=== PATIENT | male | born 1950 | race Caucasian/White ===

== ENCOUNTER 2022-02-14 21:30 | Emergency (ER) | payer MEDICARE, OTHER, SELFPAY ==
[2022-02-14 21:44] VITALS: BP 147/74; PULSE 101; RESP 20; TEMP 38.3; O2SAT 98; BMI 31.2
--- NOTE | 2022-02-14 22:15 | ED.GENADULT ---
HPI - General Adult General Chief complaint: Weakness Stated complaint: Weakness, Confusion Time Seen by Provider: 02/14/22 21:43 Source: patient, family, RN notes reviewed and old records reviewed Mode of arrival: ambulatory Limitations: altered mental status History of Present Illness HPI narrative: 72-year-old man presenting to the emergency department with his with concern of chilled, feeling cold last night. No measured fever until more today I believe was measured at 101. was also concerning seem to be a little bit out of it slightly confused. Especially this evening and was having trouble with his devices indicating screens/phone. Normally this would not be an issue. Had been feeling more tired recently. Long sleep today. A week ago reports similar symptoms but without confusion. Has had no pain. Was also more weak needing wheelchair on the way in. Underlying history of diabetes but blood sugars have been okay. Again the weakness is a major issue at the moment it is just hard to get out of the chair. Has not had any cough or cold symptoms of though admittedly does have a chronic possibly sinus related cough. History of urostomy. My review of records shows mixed david in urine cultures in the past. Is vaccinated for COVID. Did receive a B12 shot today. Past History Past Medical History Medical Problems: Coronary artery disease 12/17 LAD stents open, 50% RCA; 05/15 LAD stenting performed; tte 09/20 - ef 58%, lvh, diastolic dysfunction Knee osteoarthritis Gastroesophageal reflux h/o gastric ulcer. 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 History of total knee arthroplasty History of cholecystectomy History of coronary artery stent placement History of appendectomy Family History Family History Problems: Family history of breast cancer in mother Family history of cerebrovascular accident (CVA) in father Family history of hypertension in father Family history of diabetes mellitus grandparent Social History Social History Problems: Non-smoker Retired from employment Related Data Allergies Allergy/AdvReac Type Severity Reaction Status Date / Time Sulfa drugs Allergy Intermediate Hives Uncoded 01/30/22 09:43 Review of Systems Status of ROS: Reports: 10 or more systems reviewed and unremarkable except as noted in History and below PFSH PFSH Surgical History History of appendectomy History of cholecystectomy History of coronary artery stent placement History of ileal conduit History of total knee replacement Status post bilateral knee replacements Family History Mother Breast cancer Father Stroke High blood pressure Family/Other Diabetes Social History Narrative: Non-smoker- history of tobacco use Retired from employment Smoking Status: Unknown if ever smoked Do you use any of these nicotine containing products: None How often do you have a drink containing alcohol: never AUDIT-C Alcohol total score: 0 Non-prescribed substance use: denies use Exam Narrative: Exam Narrative: Pleasant. Easily conversant. Seems a little fatigued. Does demonstrate some confusion initially with repeating questions that already been answered. He though is also hard of hearing having [address] Is able to assist with exam though again seems just a little weak. Cranial nerves 2-12 intact. Head is atraumatic. Oropharynx is sticky. An upward plate. Neck is supple without LA. lungs are clear. CV is elevated rate to tachycardic. Regular rhythm. There is 1-2/6 systolic murmur which he reports is not new. Skin is warm. It done appreciate rash. Abdomen is soft and nontender. Urostomy in place at the right lower abdomen without inflammatory changes. Approximately 400 mL of Medium yellow urine present in bag. Appears relatively clear. Extremities are without without edema. Well perfused peripherally. Const: Vital Signs, click to edit/add: Vital Signs - 24 hr 02/14/22 21:44 02/15/22 01:06 02/15/22 01:51 Temperature 101.0 F H 98.1 F 98.1 F Pulse Rate 68 Pulse Rate [Right Pulse Oximeter] 101 H 68 Respiratory Rate 20 16 16 Blood Pressure 134/70 Blood Pressure [Ri ght Upper Arm] 147/74 H 117/69 Pulse Oximetry 98 99 Documenting provider has reviewed patient's vital signs: yes Course Course Hospital Course: Initial EKG reviewed by me shows normal sinus rhythm at 88. No ischemic changes. Monitor on panel monitor and oximetry during time in the ER. Did receive ultimately 2 L normal saline emergency department along with a g of acetaminophen. Upon findings in urine it did give a g of Rocephin as well. Fever broke. Had more energy. And was no longer confused. Transitioning easily between his room and the bathroom. Vital Signs Vital signs: Initial Vital Signs Temperature 101.0 F H 02/14/22 21:44 Temperature Source Temporal Artery Scan 02/14/22 21:44 Pulse Rate 101 H 02/14/22 21:44 Respiratory Rate 20 02/14/22 21:44 Blood Pressure 147/74 H 02/14/22 21:44 Blood Pressure Mean 98 02/14/22 21:44 Blood Pressure Position Sitting 02/14/22 21:44 Pulse Oximetry 98 02/14/22 21:44 Oxygen Delivery Method 02/14/22 21:44 Vital Signs Temperature 101.0 F H 02/14/22 21:44 Pulse Rate 101 H 02/14/22 21:44 Respiratory Rate 20 02/14/22 21:44 Blood Pressure 147/74 H 02/14/22 21:44 Pulse Oximetry 98 02/14/22 21:44 Temperature 98.1 F 02/15/22 01:51 Pulse Rate 68 02/15/22 01:51 Respiratory Rate 16 02/15/22 01:51 Blood Pressure 134/70 02/15/22 01:51 Pulse Oximetry 99 02/15/22 01:06 Medical Decision Making MDM Narrative Medical decision making narrative: This is not the only man this emergency department this evening with somewhat unclear febrile illness. Was negative for COVID influenza here. White count was not elevated but CRP was elevated 4.5. blood cultures are pending. Urine cultures are pending. Conflicted regarding the urinalysis which was cloudy 1+ protein 1+ blood positive for nitrite and microscopic 2-5 red cells and 10-25 white cells. Many bacteria. This courses from a mid collection on a urostomy. In the more likely unspecified febrile illness likely viral is driving this fever and had fevers contributing to altered mental status. Incidental findings in urine. Culture pending. However given comorbidities include be prudent to continue treatment. Again Rocephin here in the emergency department will be continued on a week of cephalexin. He was overall improved and requesting departure. Lab Data Labs: Lab Results 02/14/22 02/14/22 02/14/22 Range/Units 22:35 22:48 22:48 WBC 7.76 (4.50-11.00) K/uL RBC 3.69 L (4.30-5.90) m/uL Hgb 11.1 L (13.5-17.5) gm/dL Hct 33.7 L (37.0-53.0) % MCV 91 (80-100) fL MCH 30 (26-34) pg MCHC 33 (32-36) gm/dL RDW Coeff of Arabella 14.7 (11.5-15.5) % Plt Count 174 (140-440) K/uL Neut % (Auto) 81.8 H (42.0-72.0) % Lymph % (Auto) 9.4 L (20-44) % Coles % (Auto) 7.5 (0.0-11.0) % Eos % (Auto) 0.3 (0.0-7.0) % Baso % (Auto) 0.0 (0.0-3.0) % Neut # (Auto) 6.30 (1.7-7.0) K/uL Lymph # (Auto) 0.70 L (0.90-2.90) K/uL Coles # (Auto) 0.60 (0.00-0.90) K/UL Eos # (Auto) 0.02 (0.00-0.50) K/uL Baso # (Auto) 0.00 (0.00-0.30) K/uL Abs Immat Gran (auto) 0.08 (0.00-0.30) K/uL VBG pH (7.32-7.43) VBG pCO2 (40-50) mmHG VBG pO2 (25-47) mmHG VBG HCO3 (21-28) mmol/L Sodium 136 (135-149) mmol/L Potassium 4.0 (3.6-5.1) mmol/L Chloride 103 (96-114) mmol/L Carbon Dioxide 23 (20-32) mmol/L BUN 20 (7-30) mg/dL Creatinine 0.9 (0.5-1.5) mg/dL Estimated Creat Clear 71.13 Glucose 224 H (60-115) mg/dL Calcium 8.7 (8.4-10.6) mg/dL Total Bilirubin 0.4 (0.1-1.5) mg/dL Direct Bilirubin 0.3 (0.0-0.5) mg/dL AST 25 (12-35) U/L ALT 21 (4-50) U/L Alkaline Phosphatase 91 (40-150) U/L C-Reactive Protein 4.5 H (0.5-1.0) mg/dL Total Protein 7.0 (6.0-8.3) g/dL Albumin 4.0 (3.3-5.0) g/dL Urine Color Yellow (Yellow) Urine Appearance Cloudy A (Clear) Urine pH 7.5 (5.0-8.5) Ur Specific [place] 1.015 (1.000-1.030) Urine Protein 1+ A (Negative) Urine Glucose (UA) Negative (Negative) Urine Ketones Negative (Negative) Urine Blood 1+ A (Negative) Urine Nitrite Positive A (Negative) Urine Bilirubin Negative (Negative) Urine Urobilinogen 0.2 (0.2-1.0) Ur Leukocyte Esterase Trace A (Negative) Urine RBC 2-5 A (0-2) Urine WBC 10-25 A (0-5) Ur Squamous Epith Cells Few (None-Few) Amorphous Sediment Few A (None) Urine Bacteria Many A (None) SARS-CoV-2 (PCR) (Negative) Influenza Type A (PCR) (Negative) Influenza Type B (PCR) (Negative) 02/14/22 02/14/22 Range/Units 22:48 23:12 WBC (4.50-11.00) K/uL RBC (4.30-5.90) m/uL Hgb (13.5-17.5) gm/dL Hct (37.0-53.0) % MCV (80-100) fL MCH (26-34) pg MCHC (32-36) gm/dL RDW Coeff of Arabella (11.5-15.5) % Plt Count (140-440) K/uL Neut % (Auto) (42.0-72.0) % Lymph % (Auto) (20-44) % Coles % (Auto) (0.0-11.0) % Eos % (Auto) (0.0-7.0) % Baso % (Auto) (0.0-3.0) % Neut # (Auto) (1.7-7.0) K/uL Lymph # (Auto) (0.90-2.90) K/uL Coles # (Auto) (0.00-0.90) K/UL Eos # (Auto) (0.00-0.50) K/uL Baso # (Auto) (0.00-0.30) K/uL Abs Immat Gran (auto) (0.00-0.30) K/uL VBG pH 7.472 H (7.32-7.43) VBG pCO2 34 L (40-50) mmHG VBG pO2 48.4 H (25-47) mmHG VBG HCO3 25 (21-28) mmol/L Sodium (135-149) mmol/L Potassium (3.6-5.1) mmol/L Chloride (96-114) mmol/L Carbon Dioxide (20-32) mmol/L BUN (7-30) mg/dL Creatinine (0.5-1.5) mg/dL Estimated Creat Clear Glucose (60-115) mg/dL Calcium (8.4-10.6) mg/dL Total Bilirubin (0.1-1.5) mg/dL Direct Bilirubin (0.0-0.5) mg/dL AST (12-35) U/L ALT (4-50) U/L Alkaline Phosphatase (40-150) U/L C-Reactive Protein (0.5-1.0) mg/dL Total Protein (6.0-8.3) g/dL Albumin (3.3-5.0) g/dL Urine Color (Yellow) Urine Appearance (Clear) Urine pH (5.0-8.5) Ur Specific [place] (1.000-1.030) Urine Protein (Negative) Urine Glucose (UA) (Negative) Urine Ketones (Negative) Urine Blood (Negative) Urine Nitrite (Negative) Urine Bilirubin (Negative) Urine Urobilinogen (0.2-1.0) Ur Leukocyte Esterase (Negative) Urine RBC (0-2) Urine WBC (0-5) Ur Squamous Epith Cells (None-Few) Amorphous Sediment (None) Urine Bacteria (None) SARS-CoV-2 (PCR) Negative SARS-CoV-2 (Negative) Influenza Type A (PCR) NEGATIVE (Negative) Influenza Type B (PCR) NEGATIVE (Negative) Discharge Plan Discharge Clinical Impression: Acute alteration in mental status, Suspected urinary tract infection, Acute febrile illness Patient Disposition: Home w/ Parent or Adult Condition: Improved Instructions: Urinary Tract Infection in Men (ED) Additional Instructions: focus on hydration with unsugared /unsweetened liquids; Water is great. Can take up to 800 mg of ibuprofen or up to 1000 mg of acetaminophen per dose. Urine culture will be pending here. I am not convinced that your urine is really the problem but I think it is prudent to treat. Return for increasing weakness in spite of fever control, inability to control fever, repeated vomiting or intractable diarrhea, Increasing shortness of breath, chest pain. Follow Up/Referrals: Aydee Harrison PA-C [Primary Care Provider] - Stand Alone Forms: [employer] Info Instructions
[2022-02-14 22:59] LABS: HCO3 VBG 25 mmol/L (21-28); PCO2 VBG 34 mmHG (40-50); PO2 VBG 48.4 mmHG (25-47); pH VBG 7.472 (7.32-7.43)
[2022-02-14] MEDS: 0.9 % SODIUM CHLORIDE 1000 ml 1,000 ML IV (23:00)
[2022-02-14 23:04] LABS: Appearance Urine Cloudy (Clear); Bilirubin Urine Negative (Negative); Blood Urine 1+ (Negative); Color Urine Yellow (Yellow); Glucose Urine Negative (Negative); Ketones Urine Negative (Negative); Leukocyte Esterase Urine Trace (Negative); Nitrite Urine Positive (Negative); Protein Urine 1+ (Negative); Specific Gravity Urine 1.015 (1.000-1.030); Urobilinogen Urine 0.2 (0.2-1.0); pH Urine 7.5 (5.0-8.5)
[2022-02-14 23:16] LABS: Chloride* 103 mmol/L (96-114); Eosinophils Absolute Auto 0.02 K/uL (0.00-0.50); Eosinophils Percent Auto 0.3 % (0.0-7.0); Hematocrit 33.7 % (37.0-53.0); Hemoglobin* 11.1 gm/dL (13.5-17.5); Immature Granulocytes Abs Auto 0.08 K/uL (0.00-0.30); Lymphocytes Percent Auto 9.4 % (20-44); Mean Corpuscular HGB Conc 33 gm/dL (32-36); Mean Corpuscular Hemoglobin 30 pg (26-34); Mean Corpuscular Volume 91 fL (80-100); Monocytes Percent Auto 7.5 % (0.0-11.0); Neutrophils Percent Auto 81.8 % (42.0-72.0); Platelet Count* 174 K/uL (140-440); RDW Coefficient of Variation % 14.7 % (11.5-15.5); Red Blood Count 3.69 m/uL (4.30-5.90); Sodium* 136 mmol/L (135-149); White Blood Count* 7.76 K/uL (4.50-11.00)
[2022-02-14 23:18] LABS: Creatinine* 0.9 mg/dL (0.5-1.5); Est. Creatinine Clearance* 71.13; Estimated Glomerular Filt Rate 89.62
[2022-02-14 23:19] LABS: Alanine Aminotransferase* 21 U/L (4-50); Alkaline Phosphatase* 91 U/L (40-150); Aspartate Amino Transferase* 25 U/L (12-35); Bilirubin Direct* 0.3 mg/dL (0.0-0.5); Bilirubin Total* 0.4 mg/dL (0.1-1.5); Blood Urea Nitrogen* 20 mg/dL (7-30); Calcium* 8.7 mg/dL (8.4-10.6); Carbon Dioxide* 23 mmol/L (20-32); Glucose* 224 mg/dL (60-115); Slide Review Reflex No
[2022-02-14 23:22] LABS: C Reactive Protein* 4.5 mg/dL (0.5-1.0)
[2022-02-14 23:56] LABS: Amorphous Sediment Urine Few; Bacteria Urine Many; Squamous Epithelial Cell Urine Few (None-Few)
[2022-02-15 00:06] LABS: PCR FLU A NEGATIVE (Negative); PCR FLU B NEGATIVE (Negative); SARS PCR* Negative SARS-CoV-2 (Negative)
[2022-02-15] MEDS: cefTRIAXone 1 GM in 0.9 % SODIUM CHLORIDE Mini-bag 100 ML IVPB (00:54)
[2022-02-15] MEDS: 0.9 % SODIUM CHLORIDE 1000 ml 1,000 ML IV (00:54)
[2022-02-15 01:06] VITALS: BP 117/69; PULSE 68; RESP 16; TEMP 36.7; O2SAT 99
[2022-02-15 01:51] VITALS: BP 134/70; PULSE 68; RESP 16; TEMP 36.7
== END 2022-02-15 01:56 ==
PROVIDERS: Emergency Provider Family Medicine; PCP Physician Assistant Medical
DX: R41.82 Altered mental status, unspecified (principal); N39.0 Urinary tract infection, site not specified; R50.9 Fever, unspecified
CPT/HCPCS: 36415; 80048; 80076; 81003; 81015; 82803; 85025; 86140; 87040; 87086; 87186; 87502; 87635; 93005; 96365; 99283; 99284; J0696; J7030

== ENCOUNTER 2022-04-06 13:09 | Outpatient (CLI) | payer MEDICARE, OTHER, SELFPAY | END 2022-04-06 13:10 | disposition home or self-care (01) | LOC: LKVREF 04-09 16:12 | PROVIDERS: PCP Physician Assistant Medical; Visit Provider Nurse Practitioner Family | DX: R30.0 Dysuria (principal); N39.0 Urinary tract infection, site not specified | CPT/HCPCS: 87086; 87186 ==

== ENCOUNTER 2022-09-05 10:38 | Outpatient (CLI) | payer MEDICARE, OTHER, SELFPAY | END 2022-09-05 10:39 | disposition home or self-care (01) | LOC: FRMREF 09-07 09:16 | PROVIDERS: PCP Physician Assistant Medical; Visit Provider Physician Assistant Medical | DX: R30.0 Dysuria (principal); N39.0 Urinary tract infection, site not specified | CPT/HCPCS: 87086; 87186 ==

== ENCOUNTER 2022-10-30 12:23 | Outpatient (CLI) | payer MEDICARE, OTHER, SELFPAY | END 2022-10-30 12:24 | disposition home or self-care (01) | LOC: NFLDREF 11-01 06:42 | PROVIDERS: PCP Physician Assistant Medical; Referring Provider Physician Assistant Medical; Visit Provider Registered Nurse | DX: R30.0 Dysuria (principal); N99.521 Infection of incontinent external stoma of urinary tract; R82.90 Unspecified abnormal findings in urine | CPT/HCPCS: 87086 ==

== ENCOUNTER 2022-12-04 10:44 | Outpatient (CLI) | payer MEDICARE, OTHER, SELFPAY | END 2022-12-04 10:45 | disposition home or self-care (01) | LOC: NFLDREF 12-07 12:33 | PROVIDERS: PCP Physician Assistant Medical; Referring Provider Physician Assistant Medical; Visit Provider Physician Assistant Medical | DX: N30.00 Acute cystitis without hematuria (principal) | CPT/HCPCS: 87086; 87186 ==

== ENCOUNTER 2023-01-17 08:08 | Outpatient (CLI) | payer MEDICARE, OTHER, SELFPAY ==
[2023-01-17 14:32] LABS: Alanine Aminotransferase* 26 U/L (4-50); Aspartate Amino Transferase* 28 U/L (12-35)
[2023-01-17 14:34] LABS: Chloride* 107 mmol/L (96-114); Sodium* 140 mmol/L (135-149)
[2023-01-17 14:37] LABS: Blood Urea Nitrogen* 21 mg/dL (7-30); Calcium* 8.8 mg/dL (8.4-10.6); Carbon Dioxide* 23 mmol/L (20-32); Creatinine* 0.9 mg/dL (0.5-1.5); Estimated Glomerular Filt Rate 90 ml/min; Glucose* 145 mg/dL (60-115)
[2023-01-17 16:11] LABS: PSA Screen* < 0.06 ng/mL (0.10-4.00)
[2023-01-17 16:19] LABS: Vitamin B12* 419 pg/mL (243-894)
== END 2023-01-17 08:09 | disposition home or self-care (01) ==
PROVIDERS: PCP Physician Assistant Medical; Visit Provider Physician Assistant Medical
DX: E53.8 Deficiency of other specified B group vitamins (principal); N40.0 Benign prostatic hyperplasia without lower urinary tract symptoms; E78.5 Hyperlipidemia, unspecified; I10 Essential (primary) hypertension
CPT/HCPCS: 80048; 82607; 84153; 84450; 84460

== ENCOUNTER 2023-06-29 09:42 | Outpatient (CLI) | payer MEDICARE, OTHER, SELFPAY | END 2023-06-29 09:43 | disposition home or self-care (01) | LOC: NFLDREF 07-05 09:33 | PROVIDERS: PCP Physician Assistant Medical; Referring Provider Physician Assistant Medical; Visit Provider Physician Assistant | DX: R35.89 Other polyuria (principal); N39.0 Urinary tract infection, site not specified | CPT/HCPCS: 87086; 87186 ==

== ENCOUNTER 2023-08-07 13:26 | Outpatient (CLI) | payer MEDICARE, OTHER, SELFPAY | END 2023-08-07 13:27 | disposition home or self-care (01) | LOC: NFLDREF 08-09 11:32 | PROVIDERS: PCP Physician Assistant Medical; Referring Provider Physician Assistant Medical; Visit Provider Family Medicine | DX: N39.0 Urinary tract infection, site not specified (principal); N30.00 Acute cystitis without hematuria | CPT/HCPCS: 87086 ==

== ENCOUNTER 2023-11-26 09:45 | Outpatient (RCR) | payer MEDICARE, OTHER, SELFPAY ==
--- NOTE | 2023-10-08 11:00 | PT.OPE ---
PT [facility] Eval Start: 10/08/23 08:41 Freq: Status: Active Protocol: Document 10/08/23 08:42 ENM (Rec: 10/08/23 10:08 ENM [id number]) E-signed By Yessenia Mendez DPT Physical Therapy Outpatient Evaluation Insurance Information Recert Due Date 12/31/23 Insurance Name Medicare B Medical Diagnosis other abnormalities of gait and mobility Treating Diagnosis difficulty walking, impaired balance, impaired gait, decreased LE strength Referring MD Harrison Subjective Subjective Patient presents to PT for balance difficulties. With walking outside in the yard he has started to use a walking stick. He used to walk a lot more before but stopped. With walking around his home he is feeling slower and has to be careful. At the store he uses the cart for support. Using the walking stick gives him a little bit more confidence. He denies any falls in the last couple of months but has fallen on his slanted driveway a few times in the past. He stays active with playing golf . He has stopped doing exercises for his legs with bands. When it started: sneaking up on him in the last year Describes it as: Feels like he is going to lose his balance but can catch it if paying attention PMHx: IDDMII, hx of malignancy of bladder, HTN, HLP, CAD, b12 deficiency, BPH, CAMERON, B knee replacements Current Work Status Retired Preferred Name [facility] Objective Other/Pertinent Objective ROM: LE WFL as seen with transfers Strength: 5x STS 21.08s without use of arms 30s STS 7 reps hip flexors 4-/5 knee extensors 4/5 ankle DF 4/5 Gait/balance: narrow GRACIELA no difficulty modified tandem mild sway true tandem unable to hold >2- 3s FGA gait level 2 change speed 2 (no real change in speed) HZ head turns 2 vertical head turns 3 gait and pivot 2 step over obstacle (black klarissa) narrow GRACIELA 1 (modified tandem to perform) eyes closed (>9s) backwards 2 steps 2 6MWT pre HR 89 spo2 96% post HR 97 spo2 98% 846' no AD no instability (6 laps) Gait: Patient ambulates with wider GRACIELA with HZ sway, decreased foot clearance and pace Assessment Assessment/Impression Patient is a 73 year old male presenting with balance impairments that started about a year ago. Their strength has started to decrease and he now uses a walking stick when outside to feel more confident. He reports no recent falls but has fallen in the past when walking out along his driveway. Upon assessment patient displays decreased LE functional strength and endurance with 30s STS testing . He is able to tolerate 846' of ambulation during 6MWT with slow pace but no overt instability. He displays static balance impairments with tandem stance. As well as dynamic balance impairments on FGA scoring 18/30 indicating increased risk for falls. [facility] would greatly benefit from skilled PT to address impairments stated above in order to safely participate in all functional mobility and decrease risk for future falls . Primary Functional Limitations walking on uneven surfaces or hills Plan of Care Rehabilitation Potential Good Physical Therapy Goals In 7-9 visits: 1. Patient will be IND with HEP and self management of symptoms 2. Patient will improve FGA score from 18 to 22 (MDC 4s) to demonstrate improvements in balance/stability 3. Patient will improve 5x STS from 21.08s to 17.08s (MDC 4s ) to demonstrate improvement in LE functional strength and endurance 4. Patient will improve 6MWT from 846' to >1000' (MDC 190') to demonstrate improvements in community mobility Coordination/Communication With Referral Source Treatment Plan/Direct Interventions Gait Training,Joint Mobilization,Manual Therapy, Neuromuscular Re-ed,Self-Care/ Home Management,Therapeutic Activities,Therapeutic Exercises Frequency/Duration 1x a week for 7-10 visits Patient Will Be Discharged From Therapy Completion of LTG(s), Independent w/HEP Evaluation Billing Untimed Code Treatment Minutes 40 Complexity Low Certification Information Initial Certification Date 10/08/23 Ending Certification Date 12/31/23 Provider Signature Shows Agreement With POC & Medical Necessity Physician Signature & Date Requested Please Sign/Date Here Physician Comment/Change : Physician NPI Number #
== END 2024-02-25 14:34 | disposition home or self-care (01) ==
PROVIDERS: PCP Physician Assistant Medical; Visit Provider Physician Assistant Medical
DX: R26.89 Other abnormalities of gait and mobility (principal); Z51.89 Encounter for other specified aftercare
CPT/HCPCS: 87086; 97110; 97112; 97161

== ENCOUNTER 2024-01-15 09:05 | Outpatient (CLI) | payer MEDICARE, OTHER, SELFPAY | END 2024-01-15 09:06 | disposition home or self-care (01) | LOC: NFLDREF 01-19 11:51 | PROVIDERS: PCP Physician Assistant Medical; Referring Provider Physician Assistant Medical; Visit Provider Physician Assistant Medical | DX: N30.00 Acute cystitis without hematuria (principal) | CPT/HCPCS: 87086 ==

== ENCOUNTER 2024-02-04 10:18 | Outpatient (CLI) | payer MEDICARE, OTHER, SELFPAY | END 2024-02-04 10:19 | disposition home or self-care (01) | LOC: NFLDREF 02-07 08:45 | PROVIDERS: PCP Physician Assistant Medical; Referring Provider Physician Assistant Medical; Visit Provider Physician Assistant Medical | DX: E53.8 Deficiency of other specified B group vitamins (principal); R82.998 Other abnormal findings in urine | CPT/HCPCS: 87086; 87186 ==

== ENCOUNTER 2024-02-25 13:01 | Outpatient (CLI) | payer MEDICARE, OTHER, SELFPAY | END 2024-02-25 13:02 | disposition home or self-care (01) | LOC: NFLDREF 02-28 02:05 | PROVIDERS: PCP Physician Assistant Medical; Referring Provider Physician Assistant Medical; Visit Provider Physician Assistant Medical | DX: N30.00 Acute cystitis without hematuria (principal) | CPT/HCPCS: 87086 ==

== ENCOUNTER 2024-03-31 12:14 | Outpatient (CLI) | payer MEDICARE, OTHER, SELFPAY | END 2024-03-31 12:15 | disposition home or self-care (01) | LOC: NFLDREF 04-01 11:11 | PROVIDERS: PCP Physician Assistant Medical; Referring Provider Physician Assistant Medical; Visit Provider Physician Assistant | DX: N30.00 Acute cystitis without hematuria (principal); N39.0 Urinary tract infection, site not specified | CPT/HCPCS: 87086; 87186 ==

== ENCOUNTER 2024-04-25 11:00 | Outpatient (CLI) | payer MEDICARE, OTHER, SELFPAY | END 2024-04-25 11:01 | disposition home or self-care (01) | LOC: NFLDREF 04-26 17:02 | PROVIDERS: PCP Physician Assistant Medical; Referring Provider Physician Assistant Medical; Visit Provider Nurse Practitioner Family | DX: N30.00 Acute cystitis without hematuria (principal); B96.1 Klebsiella pneumoniae [K. pneumoniae] as the cause of diseases classified elsewhere; B95.2 Enterococcus as the cause of diseases classified elsewhere | CPT/HCPCS: 87086; 87186 ==

== ENCOUNTER 2024-05-18 16:12 | Outpatient (CLI) | payer MEDICARE, OTHER, SELFPAY | END 2024-05-18 16:13 | disposition home or self-care (01) | LOC: NFLDREF 05-22 13:10 | PROVIDERS: PCP Physician Assistant Medical; Referring Provider Physician Assistant Medical; Visit Provider Nurse Practitioner Family | DX: N30.00 Acute cystitis without hematuria (principal) | CPT/HCPCS: 87086; 87186 ==

== ENCOUNTER 2024-06-13 10:00 | Outpatient (CLI) | payer MEDICARE, OTHER, SELFPAY | END 2024-06-13 10:01 | disposition home or self-care (01) | LOC: NFLDREF 06-15 09:50 | PROVIDERS: PCP Physician Assistant Medical; Referring Provider Physician Assistant Medical; Visit Provider Family Medicine | DX: N30.00 Acute cystitis without hematuria (principal); R61 Generalized hyperhidrosis; B99.9 Unspecified infectious disease; R39.9 Unspecified symptoms and signs involving the genitourinary system; E11.9 Type 2 diabetes mellitus without complications; Z79.4 Long term (current) use of insulin; D64.9 Anemia, unspecified | CPT/HCPCS: 87086; 87186 ==

== ENCOUNTER 2024-06-28 09:23 | Outpatient (CLI) | payer MEDICARE, OTHER, SELFPAY | END 2024-06-28 09:24 | disposition home or self-care (01) | LOC: NFLDREF 07-01 12:14 | PROVIDERS: PCP Physician Assistant Medical; Referring Provider Physician Assistant Medical; Visit Provider Physician Assistant | DX: R31.9 Hematuria, unspecified (principal); N39.0 Urinary tract infection, site not specified; N30.00 Acute cystitis without hematuria | CPT/HCPCS: 87086; 87186 ==

== ENCOUNTER 2024-07-02 11:25 | Outpatient (CLI) | payer MEDICARE, OTHER, SELFPAY | END 2024-07-02 11:26 | disposition home or self-care (01) | LOC: FRMREF 11:35 | PROVIDERS: PCP Physician Assistant Medical; Visit Provider Nurse Practitioner Family | DX: M25.50 Pain in unspecified joint (principal) | CPT/HCPCS: 86140 ==

== ENCOUNTER 2024-07-13 13:20 | Outpatient (CLI) | payer MEDICARE, OTHER, SELFPAY | END 2024-07-13 13:21 | disposition home or self-care (01) | LOC: NFLDREF 07-14 16:12 | PROVIDERS: PCP Physician Assistant Medical; Referring Provider Physician Assistant Medical; Visit Provider Nurse Practitioner Family | DX: N30.00 Acute cystitis without hematuria (principal); N39.0 Urinary tract infection, site not specified | CPT/HCPCS: 87086; 87186 ==

== ENCOUNTER 2024-07-27 12:09 | Outpatient (CLI) | payer MEDICARE, OTHER, SELFPAY | END 2024-07-27 12:10 | disposition home or self-care (01) | LOC: NFLDREF 07-28 03:41 | PROVIDERS: PCP Physician Assistant Medical; Referring Provider Physician Assistant Medical | DX: N30.00 Acute cystitis without hematuria (principal); B96.1 Klebsiella pneumoniae [K. pneumoniae] as the cause of diseases classified elsewhere | CPT/HCPCS: 87086; 87186 ==

== ENCOUNTER 2024-08-13 13:40 | Inpatient (IN) | payer MEDICARE, OTHER, SELFPAY ==
[2024-08-13] VITALS (9 sets, daily range): BP systolic 95–125; BP diastolic 57–67; PULSE 80–100; RESP 12–21; TEMP 36.7–38.8; O2SAT 94–98; BMI 30.1; BMI 31.5
--- NOTE | 2024-08-13 13:49 | CRLHL7_ITS ---
For Patients: As a result of the Cures Act, medical imaging exams and procedure reports are released immediately into your electronic medical record. You may view this report before your referring provider. If you have questions, please contact your health care provider. Indication: Fever and weakness Technique: Chest 1 view Comparison: None Findings/Impression: Cardiovascular and mediastinum: Heart size and vasculature are normal in caliber and appearance. Lungs and pleural space: Lungs are clear. No sign of infiltrate or mass. No sign of pleural effusion. No pneumothorax. Bones and soft tissues: No acute findings. Dictated by Dante Quinonez MD @ 08/13/2024 2:34:24 PM (Electronically Signed)
--- NOTE | 2024-08-13 13:55 | ED.GENADULT ---
HPI - General Adult General Date Seen: 08/13/24 Chief complaint: Urogenital Problems, Male Stated complaint: UTI Time Seen by Provider: 08/13/24 13:46 History of Present Illness HPI narrative: Patient is a 74-year-old male here from Urgent Care via EMS for confusion, fever, possible UTI. His had brought him to urgent care today because she was worried he might have another UTI, has a suprapubic catheter and has had problems with recurrent UTI, most recently treated on July 27. At urgent care he was noted to look somewhat poorly, had a temp of 102?, and was transferred here by ambulance. Vital signs were stable. Here, he denies current complaints, he does acknowledge he was feeling kind of poorly earlier. He was not aware of fever. He denies chest pain, cough, shortness of breath, abdominal pain, vomiting or diarrhea. Related Data Home Medications ?Medication ?Instructions ?Recorded ?Confirmed aspirin 81 mg tablet,delayed 81 mg PO QDAY 03/20/22 08/13/24 release (Adult Aspirin Regimen) insulin glargine 100 unit/mL (3 20 unit subcut QAM 03/20/22 08/13/24 mL) subcutaneous pen (Lantus Solostar U-100 Insulin) metformin 1,000 mg tablet 1,000 mg PO BID 03/20/22 08/13/24 sildenafil 25 mg tablet 25 mg PO QDAY PRN 03/20/22 08/13/24 semaglutide 1 mg/dose (4 mg/3 mL) 1 mg subcut QWEEK 10/01/23 08/13/24 subcutaneous pen injector (Ozempic) tirzepatide 10 mg/0.5 mL 10 mg subcut 06/13/24 08/13/24 subcutaneous pen injector (Mounjaro) Previous Rx's ?Medication ?Instructions ?Recorded nitroglycerin 0.4 mg sublingual 0.4 mg sublingual Q5M PRN chest 05/07/23 tablet pain #15 tabs rosuvastatin 20 mg tablet 20 mg PO QDAY #90 tabs 12/11/23 carvedilol 6.25 mg tablet 6.25 mg PO BID #180 tabs 01/14/24 trazodone 50 mg tablet 50 - 150 mg (1 - 3 x 50 mg) PO QPM 04/20/24 PRN sleep #270 tabs lisinopril 5 mg tablet 5 mg PO DAILY #90 tabs 05/13/24 Allergies Allergy/AdvReac Type Severity Reaction Status Date / Time Sulfa (Sulfonamide Allergy Intermediate Rash Verified 08/13/24 13:54 Antibiotics) Review of Systems Status of ROS: Reports: 10 or more systems reviewed and unremarkable except as noted in History and below [facility] Medical History Normal cardiac stress test Surgical History History of amputation ?Z89.9 - Acquired absence of limb, unspecified (ICD-10) Status post bilateral knee replacements (~2009) ?Z96.653 - Presence of artificial knee joint, bilateral (ICD-10) History of ileal conduit ?Z98.890 - Other specified postprocedural states (ICD-10) History of coronary artery stent placement ?Z95.5 - Presence of coronary angioplasty implant and graft (ICD-10) History of cholecystectomy ?Z90.49 - Acquired absence of other specified parts of digestive tract (ICD-10) History of appendectomy ?Z90.49 - Acquired absence of other specified parts of digestive tract (ICD-10) Family History Mother Breast cancer Father Stroke High blood pressure Family/Other Diabetes Social History Narrative: Non-smoker- history of tobacco use Retired from employment Smoking Status: Former smoker Do you use any of these nicotine containing products: None How often do you have a drink containing alcohol: never AUDIT-C Alcohol total score: 0 Non-prescribed substance use: denies use Exam Narrative: Exam Narrative: Vital signs reviewed In general, alert, nontoxic elderly male. Head: Normocephalic, atraumatic. Eyes: Sclera clear. Pupils equal and reactive. ENT: Mucous membranes moist. Neck: Supple without adenopathy. Heart: Regular rate and rhythm without murmur. Lungs: Clear. No increased work of breathing, crackles or wheezes. Abdomen: Soft, nontender to palpation. Catheter in place. Urine looks clear. Extremities: Well perfused, pulses intact. No significant edema. Neurologic: Alert, conversant. Speech fluent, face symmetric. Moves all extremities equally. He is oriented to person place and time, answers questions appropriately. Skin: Warm, dry well perfused. Affect: Normal. Const: Vital Signs, click to edit/add: Vital Signs - 24 hr 08/13/24 13:47 08/13/24 13:49 Temperature 101 F H Pulse Rate [Pulse Oximeter] 100 Respiratory Rate 20 Blood Pressure [Le ft Upper Arm] 125/61 Pulse Oximetry 97 98 Oxygen Delivery Me thod Room Air Documenting provider has reviewed patient's vital signs: yes Course Course ED Course: Following initial evaluation, patient had an EKG which showed a sinus rhythm, ventricular rate of 99. Right bundle branch block, no other acute findings. An IV was placed, labs were drawn including a blood culture, CBC, lactate, procalcitonin. A UA was ordered. Chest x-ray was done as well. By my review this is unremarkable without evidence of infiltrate. Final radiology read linked below, reviewed. Initial lab results show a lactate of 2.5, he is tripping markers for sepsis with fever, tachycardia, elevated lactate. Other sepsis markers are pending, patient is given a L of normal saline as well as Rocephin 2 g IV. With negative chest x-ray and multiple recent urine culture showing Klebsiella which is resistant to ampicillin and nitrofurantoin but otherwise sensitive, I think Rocephin is a reasonable choice. White blood cell count is normal at 10.6, he does have a left shift with 85% neutrophils. Venous gas shows a pH of 7.45, normal bicarb, pCO2 is 35. Metabolic panel is normal, BUN 25, creatinine 0.9. Blood sugars elevated at 237, LFTs are unremarkable. CRP is 6.7. Viral swab is negative. Patient admitted to hospitalist service for possible sepsis, likely urinary source. Vital Signs Vital signs: Initial Vital Signs Temperature 101 F H 08/13/24 13:47 Temperature Source Temporal Artery Scan 08/13/24 13:47 Pulse Rate 100 08/13/24 13:47 Respiratory Rate 20 08/13/24 13:47 Blood Pressure 125/61 08/13/24 13:47 Blood Pressure Mean 82 08/13/24 13:47 Blood Pressure Position Sitting 08/13/24 13:47 Pulse Oximetry 97 08/13/24 13:47 Oxygen Delivery Method Room Air 08/13/24 13:47 Vital Signs Temperature 101 F H 08/13/24 13:47 Pulse Rate 100 08/13/24 13:47 Respiratory Rate 20 08/13/24 13:47 Blood Pressure 125/61 08/13/24 13:47 Pulse Oximetry 97 08/13/24 13:47 Oxygen Delivery Method Room Air 08/13/24 13:47 Temperature 101 F H 08/13/24 13:47 Pulse Rate 100 08/13/24 13:47 Respiratory Rate 20 08/13/24 13:47 Blood Pressure 125/61 08/13/24 13:47 Pulse Oximetry 98 08/13/24 13:49 Oxygen Delivery Method Room Air 08/13/24 13:47 Medications Administered Medications: Discontinued Medications Generic Name Dose Route Start Last Admin Trade Name Freq PRN Reason Stop Dose Admin Acetaminophen 1,000 mg 08/13/24 13:49 08/13/24 14:08 Acetaminophen 500 Mg Tablet PO 08/13/24 13:50 1,000 mg ONCE ONE Administration Sodium Chloride 1,000 mls @ 1,000 mls/hr 08/13/24 14:00 08/13/24 14:08 0.9 % Sodium Chloride 1000 Ml IV 08/13/24 14:59 1,000 mls/hr .Q1H NATALIE Administration Ceftriaxone Sodium 2 gm/ 100 mls @ 200 mls/hr 08/13/24 14:42 08/13/24 15:05 Sodium Chloride IVPB 08/13/24 14:43 200 mls/hr ONCE ONE Administration Medical Decision Making Lab Data Labs: Lab Results 08/13/24 08/13/24 Range/Units 14:04 14:14 WBC 10.62 (4.50-11.00) K/uL RBC 3.92 L (4.30-5.90) m/uL Hgb 11.8 L (13.5-17.5) gm/dL Hct 35.9 L (37.0-53.0) % MCV 92 (80-100) fL MCH 30 (26-34) pg MCHC 33 (32-36) gm/dL RDW Coeff of Arabella 16.3 H (11.5-15.5) % Plt Count 95 L (140-440) K/uL Neut % (Auto) 85.4 H (42.0-72.0) % Lymph % (Auto) 5.4 L (20-44) % Wythe % (Auto) 8.6 (0.0-11.0) % Eos % (Auto) 0.0 (0.0-7.0) % Baso % (Auto) 0.2 (0.0-3.0) % Neut # (Auto) 9.10 H (1.7-7.0) K/uL Lymph # (Auto) 0.60 L (0.90-2.90) K/uL Wythe # (Auto) 0.90 (0.00-0.90) K/UL Eos # (Auto) 0.00 (0.00-0.50) K/uL Baso # (Auto) 0.02 (0.00-0.30) K/uL Abs Immat Gran (auto) 0.04 (0.00-0.30) K/uL Imm/Tot Granulo (auto) 0.4 % VBG pH 7.447 H (7.32-7.43) VBG pCO2 35 L (40-50) mmHG VBG pO2 53.0 H (25-47) mmHG VBG HCO3 24 (21-28) mmol/L Sodium 134 L (135-149) mmol/L Potassium 4.2 (3.6-5.1) mmol/L Chloride 103 (96-114) mmol/L Carbon Dioxide 22 (20-32) mmol/L Anion Gap 9 (7-15) mEq/L BUN 25 (7-30) mg/dL Creatinine 0.9 (0.5-1.5) mg/dL Estimated Creat Clear 64.89 Estimated GFR 89 ml/min Glucose 237 H (60-115) mg/dL Lactate 2.5 H (0.5-1.9) mmol/L Calcium 8.7 (8.4-10.6) mg/dL Total Bilirubin 1.1 (0.1-1.5) mg/dL Direct Bilirubin 0.3 (0.0-0.5) mg/dL AST 31 (12-35) U/L ALT 32 (4-50) U/L Alkaline Phosphatase 62 (40-150) U/L C-Reactive Protein 6.7 H (0.5-1.0) mg/dL Total Protein 6.9 (6.0-8.3) g/dL Albumin 4.2 (3.3-5.0) g/dL Procalcitonin 0.45 (<0.50) ng/mL SARS-CoV-2 (PCR) Negative SARS-CoV-2 (Negative) Influenza Type A (PCR) Negative PCR FLU A (Negative) Influenza Type B (PCR) Negative PCR FLU B (Negative) RSV (PCR) Negative PCR RSV (Negative) Imaging Data Chest x-ray: Attestation: I have reviewed the pertinent imaging results. Radiologist's impression: Patient: Jah Rivera MR#: [id number] : 1950 Acct:[id number] Loc: ED Service Date: 08/13/[address]: Ordering Physician: Guadalupe Silver M.D. Date of Service: 08/13/24 Procedure(s): XR chest 1V portable Accession Number(s): [id number] cc: Guadalupe Silver M.D.; Aydee NOWAK~ For Patients: As a result of the Cures Act, medical imaging exams and procedure reports are released immediately into your electronic medical record. You may view this report before your referring provider. If you have questions, please contact your health care provider. Indication: Fever and weakness Technique: Chest 1 view Comparison: None Findings/Impression: Cardiovascular and mediastinum: Heart size and vasculature are normal in caliber and appearance. Lungs and pleural space: Lungs are clear. No sign of infiltrate or mass. No sign of pleural effusion. No pneumothorax. Bones and soft tissues: No acute findings. Dictated by Dante Quinonez MD @ 08/13/2024 2:34:24 PM Discharge Plan Discharge Clinical Impression: Fever Patient Disposition: Admitted As Observation Condition: Stable
[2024-08-13] MEDS: 0.9 % SODIUM CHLORIDE 1000 ml 1,000 ML IV (14:08)
[2024-08-13] MEDS: ACETAMINOPHEN 500 MG TABLET 1000 MG PO (14:08)
[2024-08-13 14:23] LABS: Lactate Sepsis w/Reflex* 2.5 mmol/L (0.5-1.9)
[2024-08-13 14:25] LABS: Basophils Absolute Auto 0.02 K/uL (0.00-0.30); Basophils Percent Auto 0.2 % (0.0-3.0); Hematocrit 35.9 % (37.0-53.0); Hemoglobin* 11.8 gm/dL (13.5-17.5); Immature Granulocytes Abs Auto 0.04 K/uL (0.00-0.30); Immature Granulocytes Pct Auto 0.4 %; Lymphocytes Percent Auto 5.4 % (20-44); Mean Corpuscular HGB Conc 33 gm/dL (32-36); Mean Corpuscular Hemoglobin 30 pg (26-34); Mean Corpuscular Volume 92 fL (80-100); Monocytes Percent Auto 8.6 % (0.0-11.0); Neutrophils Percent Auto 85.4 % (42.0-72.0); Platelet Count* 95 K/uL (140-440); RDW Coefficient of Variation % 16.3 % (11.5-15.5); Red Blood Count 3.92 m/uL (4.30-5.90); White Blood Count* 10.62 K/uL (4.50-11.00)
[2024-08-13 14:41] LABS: Albumin* 4.2 g/dL (3.3-5.0); Chloride* 103 mmol/L (96-114); Potassium* 4.2 mmol/L (3.6-5.1); Sodium* 134 mmol/L (135-149)
[2024-08-13 14:43] LABS: Creatinine* 0.9 mg/dL (0.5-1.5); Est. Creatinine Clearance* 64.89; Estimated Glomerular Filt Rate 89 ml/min
[2024-08-13 14:44] LABS: Alanine Aminotransferase* 32 U/L (4-50); Alkaline Phosphatase* 62 U/L (40-150); Anion Gap 9 mEq/L (7-15); Aspartate Amino Transferase* 31 U/L (12-35); Bilirubin Direct* 0.3 mg/dL (0.0-0.5); Bilirubin Total* 1.1 mg/dL (0.1-1.5); Blood Urea Nitrogen* 25 mg/dL (7-30); Carbon Dioxide* 22 mmol/L (20-32); Glucose* 237 mg/dL (60-115); Slide Review Reflex No; Total Protein* 6.9 g/dL (6.0-8.3)
[2024-08-13 14:45] LABS: Calcium* 8.7 mg/dL (8.4-10.6)
[2024-08-13 14:47] LABS: C Reactive Protein* 6.7 mg/dL (0.5-1.0)
[2024-08-13 14:54] LABS: HCO3 VBG 24 mmol/L (21-28); PCO2 VBG 35 mmHG (40-50); pH VBG 7.447 (7.32-7.43)
[2024-08-13 15:01] LABS: Procalcitonin* 0.45 ng/mL (<0.50)
[2024-08-13 15:02] LABS: PCR FLU A Negative PCR FLU A (Negative); PCR FLU B Negative PCR FLU B (Negative); PCR RSV Negative PCR RSV (Negative); SARS PCR* Negative SARS-CoV-2 (Negative)
[2024-08-13] MEDS: cefTRIAXone 2 GM in 0.9 % SODIUM CHLORIDE Mini-bag 100 ML IVPB (15:05)
[2024-08-13 15:13] LABS: Appearance Urine Slightly Cloudy (Clear); Bilirubin Urine Negative (Negative); Blood Urine 1+ (Negative); Color Urine Yellow (Yellow); Glucose Urine Negative (Negative); Ketones Urine Negative (Negative); Leukocyte Esterase Urine 3+ (Negative); Nitrite Urine Negative (Negative); Protein Urine 2+ (Negative); Urobilinogen Urine 0.2 (0.2-1.0)
--- OUTSIDE RECORDS SUMMARY | 2024-08-13 15:33 | XMS_ITS ---
Author Organization [facility] Address [address] [place] [id number] Care Team Providers Care Delphi Developer Name Role Phone Xavi Devine Unavailable Clinic, [facility] Primary Care Provider Care, [facility] Unavailable Active Problems Problem Noted Date Diagnosed Date Bladder cancer 01/12/2020 Current Oncology Plans No current plan information found. Past Plans No past plan information found. Radiation Treatments * No radiation treatments are documented for this patient in [facility]. Treatments may have been administered in another system. Lifetime Dose Tracking * Chemical Lifetime Dose Automatic Entry Manual Entr y DLP 1.13 mGy*cm 1.13 mGy*cm 0 mGy*cm
--- OUTSIDE RECORDS SUMMARY | 2024-08-13 15:33 | XMS_ITS | Clinical Summary ---
Author Organization [facility] Address [address] [place] [address]. [place] [address] Care Team Providers Care Sliver Lapper Name Role Phone Sybil Xavi Chopra Unavailable [phone] Clinic, [facility] Primary Care Provider Care, [facility] Unavailable Allergies Active Allergy Reactions Criticality Noted Date Comments Sulfa Antibiotics Hives 06/18/2019 Medications liraglutide (VICTOZA) 18 MG/3ML solution Inject 1.8 mg Subcutaneous daily Active metFORMIN (GLUCOPHAGE) 1000 MG tablet Take 1,000 mg by mouth 2 times daily Active nitroGLYcerin (NITROSTAT) 0.[address] 0.4 mg under the tongue every 5 minutes as needed for chest pain For chest pain place 1 tablet under the tongue every 5 minutes for 3 doses. If symptoms persist 5 minutes after 1st dose call 911. Active tadalafil (CIALIS) 20 MG tablet Take 20 mg by mouth daily as needed Active traZODone (DESYREL) 50 MG tablet Take 50-150 mg by mouth every evening Active lisinopril (PRINIVIL/ZESTR IL) 5 MG tablet Take 5 mg by mouth daily Active carvedilol (COREG) 6.25 MG tablet Take 6.25 mg by mouth 2 times daily (with meals) Active rosuvastatin (CRESTOR) 20 MG tablet Take 20 mg by mouth every evening Active triamcinolone (KENALOG) 0.1 % external cream Apply topically 2 times daily as needed for irritation Active insulin glargine (LANTUS PEN) 100 UNIT/ML penIndications: Malignant neoplasm of urinary bladder, unspecified site (H) Inject 10 Units Subcutaneous 2 times daily 0 0 Active levETIRAcetam (KEPPRA) 1000 MG tabletIndicatio ns:Severe sepsis (H) Take 1 tablet (1,000 mg) by mouth 2 times daily 30 tablet 1 0 Active Active Problems Problem Noted Date Diagnosed Date Bladder cancer 01/12/2020 Encounters Date Type Department Care Team Description 05/26/2024 10:56 AM CDT - 05/26/2024 11:59 PM CDT Hospital Encounter [facility] [address] [place] [address] Larry Delaney MD 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); Diabetes mellitus type I (H) Discharge Disposition: Home or Self Care 05/26/2024 Travel from Last 3 Months Social History Tobacco Use Types Packs/Day Years Used Date Smoking Tobacco: Former Cigarettes Smokeless Tobacco: Never Alcohol Use Standard Drinks/Week Comments Yes 0 (1 standard drink = 0.6 oz pur e alcohol) social Adolescent Education Answer Date Record ed Getting School Help Needed Not on file 05/03 Sex and Gender Information Value Date Recorded Sex Assigned at Not on file Legal Sex Male 3:36 PM CDT Gender Identity Not on file Sexual Orientation Not on file Last Filed Vital Signs Vital Sign Reading Time Taken Comments Blood Pressure 133/68 12/02/2020 10:00 AM CDT Pulse 75 12/02/2020 10:00 AM CDT Temperature 36.6 C (97.8 F) 12/02/2020 8:11 AM CDT Respiratory Rate 16 12/02/2020 10:00 AM CDT Oxygen Saturation 95% 12/02/2020 10:00 AM CDT Inhaled Oxygen Concentration - - Weight 106.4 kg (234 lb 8 oz) 01/24/2020 5:43 AM CDT Height 177.8 cm (5' 10) 01/12/2020 9:03 AM CDT Body Mass Index 33.65 01/12/2020 9:03 AM CDT Plan of Treatment Health Maintenance Due Date Last Done Comments ANNUAL REVIEW OF HM ORDERS 1950 DIABETIC FOOT EXAM 1950 EYE EXAM 1950 LIPID 1950 MICROALBUMIN 1950 HEPATITIS C SCREENING 02/03/1966 ZOSTER IMMUNIZATION (1 of 2) 02/03/1998 FALL RISK ASSESSMENT 02/03/2013 MEDICARE ANNUAL WELLNESS VISIT 02/03/2013 DTAP/TDAP/TD IMMUNIZATION (1 - Tdap) 04/22/2019 04/21/2019 A1C 04/14/2020 01/13/2020, 03/04/2010 BMP 01/23/2021 01/24/2020, 01/10, 01/22/2020, Additional history exists RSV VACCINE (1 - 1-dose 75+ series) 02/03/2023 PHQ-2 (once per calendar year) 2023 ADVANCE CARE PLANNING 01/18/2025 01/19/2020 LUNG CANCER SCREENING 05/26/2025 05/26/2024 , 05/27/2023, 01/19/2020 Pneumococcal Vaccine: 50+ Years Completed 08/25/2018, 10/23/2016, 05/01/2011, Additional history exists COVID-19 Vaccine Completed 05/13/2024, , 06/17/2023, Additional history exists INFLUENZA VACCINE Completed 05/13/2024, , 05/28/2022, Additional history exists HPV IMMUNIZATION Aged Out No longer e ligible based on patient's age to complete this topic MENINGITIS IMMUNIZATION Aged Out No l onger eligible based on patient's age to complete this topic RSV MONOCLONAL ANTIBODY Aged Out No l onger eligible based on patient's age to complete this topic Medical Devices Explanted Type Area Machine Gunner Device Identifier Shelf Expiration Date Model / Serial / Lot Port-07/21/2019 Implanted:Qty: 1 on 07/21/2019 by Dorian Yu MD Explanted:Qty: 1 on 12/02/2020 by Louis Ferreira MD Port Right: Chest Wall BARD 09/11/2020 / / [id number] Procedures Procedure Name Priority Date/Time Associated Diagnosis Comments CT CHEST/ABDOMEN/PELVIS W CONTRAST Routine 05/26/2024 11:31 AM CDT 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) Diabetes mellitus type I (H) ISTAT CREATININE POCT Routine 05/26/2024 11:15 AM CDT BASIC METABOLIC PANEL Routine 01/24/2020 6:00 AM CDT HEMOGLOBIN A1C Routine 01/13/2020 6:53 AM CDT from Last 3 Months or Most Recently Relevant to Health Maintenance Results * CT Chest/Abdomen/Pelvis w Contrast (05/26/2024 11:31 AM CDT) Anatomical Region Laterality Modality Abdomen/Pelvis, Chest, SUBRA D CT BODY, UMP CT CHEST, UMP CT ABDOMEN PELVIS, RAD CT Computed Tomography Impressions 05/26/2024 12:17 PM CDT IMPRESSION: 1. No recurrent or metastatic disease in the chest, abdomen and pelvis. 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 Multiplanar reformats were obtained. Dose reduction techniques were used. CONTRAST: 100mL Isovue-370 COMPARISON: 05/27/2023 FINDINGS: LUNGS AND PLEURA: Stable reticular opacities with mild architectural distortion and traction bronchiectasis in the bilateral lower lobes of the lung bases, likely due to mild nonspecific pulmonary fibrosis. No pulmonary nodules or masses. No infiltrate or pleural effusion.. MEDIASTINUM/AXILLAE: No lymphadenopathy. No thoracic aortic aneurysm. Severe coronary artery calcifications. HEPATOBILIARY: No focal lesions of the liver. Cholecystectomy. PANCREAS: Normal. SPLEEN: Normal. ADRENAL GLANDS: Normal. KIDNEYS/BLADDER: Cystoprostatectomy. Right lower quadrant ileal loop urinary conduit. No renal calculi, masses or hydronephrosis. Stable moderate-sized fat-containing parastomal. BOWEL: No small bowel or colonic obstruction or inflammatory changes. Appendectomy. Colonic diverticulosis. Moderate amount of formed stool throughout the colon. PELVIC ORGANS: Cystoprostatectomy. No pelvic masses. ADDITIONAL FINDINGS: No lymphadenopathy. No abdominal aortic aneurysm. MUSCULOSKELETAL: Degenerative changes of the spine. No suspicious lesions within the bones. 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 Multiplanar reformats were obtained. Dose reduction techniques were used. CONTRAST: 100mL Isovue-370 COMPARISON: 05/27/2023 FINDINGS: LUNGS AND PLEURA: Stable reticular opacities with mild architectural distortion and traction bronchiectasis in the bilateral lower lobes of the lung bases, likely due to mild nonspecific pulmonary fibrosis. No pulmonary nodules or masses. No infiltrate or pleural effusion.. MEDIASTINUM/AXILLAE: No lymphadenopathy. No thoracic aortic aneurysm. Severe coronary artery calcifications. HEPATOBILIARY: No focal lesions of the liver. Cholecystectomy. PANCREAS: Normal. SPLEEN: Normal. ADRENAL GLANDS: Normal. KIDNEYS/BLADDER: Cystoprostatectomy. Right lower quadrant ileal loop urinary conduit. No renal calculi, masses or hydronephrosis. Stable moderate-sized fat-containing parastomal. BOWEL: No small bowel or colonic obstruction or inflammatory changes. Appendectomy. Colonic diverticulosis. Moderate amount of formed stool throughout the colon. PELVIC ORGANS: Cystoprostatectomy. No pelvic masses. ADDITIONAL FINDINGS: No lymphadenopathy. No abdominal aortic aneurysm. MUSCULOSKELETAL: Degenerative changes of the spine. No suspicious lesions within the bones. IMPRESSION: 1. No recurrent or metastatic disease in the chest, abdomen and pelvis. CAITLYN RYAN MD Larry Delaney MD [facility] [place] ORDERABLES Final Result * Creatinine POCT (05/26/2024 11:15 AM CDT) Creatinine POCT 0.9 0.7 - 1.3 mg/dL 05/26/2024 11:17 AM CDT [facility] POC GFR, ESTIMATED POCT >60 >60 mL/min/1.7 3m2 05/26/2024 11:17 AM CDT [facility] POC Blood BLOOD SPECIMEN / Unknown 05/26/2024 11:15 AM CDT 05/26/2024 11:17 AM CDT [facility] Final Result LABORATORY [facility] [address] Lab (1st floor, no room number) [place] [address], [facility] * (ABNORMAL) Basic metabolic panel (01/24/2020 6:00 AM CDT) Sodium 141 133 - 144 mmol/L 01/24/2020 6:41 AM [facility] Potassium 3.5 3.4 - 5.3 mmol/L 01/24/2020 6:41 AM [facility] Chloride 109 94 - 109 mmol/L 01/24/2020 6:41 AM [facility] Carbon Dioxide 26 20 - 32 mmol/L 01/24/2020 6:47 AM [facility] Anion Gap 6 3 - 14 mmol/L 01/24/2020 6:47 AM [facility] Glucose 138(H) 70 - 99 mg/dL 01/24/2020 6:47 AM [facility] Urea Nitrogen 10 7 - 30 mg/dL 01/24/2020 6:47 AM [facility] Creatinine 0.66 0.66 - 1.25 mg/dL 01/24/2020 6:47 AM [facility] GFR Estimate >90 >60 mL/min/{1. 73_m2} 01/24/2020 6:47 AM [facility] Comment: Non GFR Calc Starting 07/29/2018, serum creatinine based estimated GFR (eGFR) will be calculated using the Chronic Kidney Disease Epidemiology Collaboration (CKD-EPI) equation. GFR Estimate If Black >90 >60 mL/min/{1. 73_m2} 01/24/2020 6:47 AM [facility] Comment: GFR Calc Starting 07/29/2018, serum creatinine based estimated GFR (eGFR) will be calculated using the Chronic Kidney Disease Epidemiology Collaboration (CKD-EPI) equation. Calcium 8.1(L) 8.5 - 10.1 mg/dL 01/24/2020 6:47 AM CDT [facility] Blood specimen (specimen) 01/24/2020 6:00 AM CDT 01/24/2020 6:28 AM CDT us Ranjit Christopher MD LAB - BLOOD ORDERABLES Fi nal Result [facility] [address] [address], [facility] [phone] * (ABNORMAL) Hemoglobin A1c (01/13/2020 6:53 AM CDT) Hemoglobin A1C 6.2(H) 0 - 5.6 % 01/13/2020 7:26 AM CDT [facility] Comment: Normal <5.7% Prediabetes 5.7-6.4% Diabetes 6.5% or higher - adopted from ADA consensus guidelines. 01/13/2020 6:53 AM CDT 01/13/2020 6:58 AM CDT us Michelle Knox PA-C LAB - BLOOD ORDERABLES Final Result Performing Organization Address [facility]/ZIP Co de Phone Number [facility] [address] [place] [address], [facility] [phone] from Last 3 Months or Most Recently Relevant to Health Maintenance Insurance MEDICARE MEDICA [employer] SOLUTION MEDICARE MEDICA [employer] Advance Directives For more information, please contact: [phone] * Full Code (Latest Code Status on File) Date Activated Date Inactivated Comments 01/24/2020 2:47 PM 12/02/2020 7:35 AM Question Answer Comments Code status determined by: Unable to dis cuss and no AD/POLST on file; continue PREVIOUSLY ORDERED code status * Full Code Date Activated Date Inactivated Comments 01/12/2020 4:12 PM 01/24/2020 2:47 PM Question Answer Comments Code status determined by: Unable to det ermine; FULL CODE until documents or legal decision maker available Care Teams Sliver Lapper Relationship Specialty Start Date End Date Clinic, [address] [address] PCP - General 01/21/20 Xavi Devine [address] [address] Family Practice 05/09/15 [facility] ([facility] ([place] 01/24/20
--- OUTSIDE RECORDS SUMMARY | 2024-08-13 15:33 | XMS_ITS | Referral Summary ---
Author Organization [facility] Address [address] [place] [id number] Care Team Providers Care Inspector Eyeglass Frames Name Role Phone Xavi Devine Unavailable [phone] Clinic, Formerly [facility] Primary Care Provider [facility], [facility] Unavailable Encounters Date Type Department Care Team Description 05/26/2024 Travel 05/26/2024 10:56 AM CDT - 05/26/2024 11:59 PM CDT Hospital Encounter [facility] [address] [place] [address] Larry Delaney MD 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); Diabetes mellitus type I (H) Discharge Disposition: Home or Self Care from Last 3 Months Allergies Active Allergy Reactions Criticality Noted Date [...] Noted Date Diagnosed Date Bladder cancer 01/12/2020 Social History Tobacco Use Types Packs/Day Years [...] 01/12/2020 9:03 AM CDT Plan of Treatment Not on file Medical Devices Explanted Type Area Water Proofer Device Identifier Shelf Expiration Date Model / Serial / Lot Port-07/21/2019 Implanted:Qty: 1 on 07/21/2019 by Dorian Yu MD Explanted:Qty: 1 on 12/02/2020 by Louis Ferreira MD Port Right: Chest Wall BARD 09/11/2020 / / [id number] Procedures Procedure Name Priority Date/Time Associated Diagnosis [...] chest, abdomen and pelvis. CAITLYN RYAN MD [facility] 05/26/2024 12:[address] CHEST/ABDOMEN/PELVIS W [...] pelvis. CAITLYN RYAN MD Larry Delaney MD IMG CT ORDERABLES Final Result * Creatinine POCT (05/26/2024 11:15 AM CDT) Creatinine POCT 0.9 0.7 - 1.3 mg/dL 05/26/2024 11:17 AM CDT [facility] GFR, ESTIMATED POCT >60 >60 mL/min/1.7 3m2 05/26/2024 11:17 AM CDT [facility] Blood BLOOD SPECIMEN / Unknown 05/26/2024 11:15 AM CDT 05/26/2024 11:17 AM CDT Larry Delaney MD LAB - BEAKER POCT Final Result [facility] Acute [facility] Lab [address] Lab (1st floor, no room number) [place] [address] * (ABNORMAL) Basic metabolic panel (01/24/2020 6:00 AM CDT) Sodium 141 133 - 144 mmol/L 01/24/2020 6:41 AM T [facility] Potassium 3.5 3.4 - 5.3 mmol/L 01/24/2020 6:41 AM T [facility] Chloride 109 94 - 109 mmol/L 01/24/2020 6:41 AM T [facility] Carbon Dioxide 26 20 - 32 mmol/L 01/24/2020 6:47 AM CDT [facility] Anion Gap 6 3 - 14 mmol/L 01/24/2020 6:47 AM T [facility] Glucose 138(H) 70 - 99 mg/dL 01/24/2020 6:47 AM T [facility] Urea Nitrogen 10 7 - 30 mg/dL 01/24/2020 6:47 AM T [facility] Creatinine 0.66 0.66 - 1.25 mg/dL 01/24/2020 6:47 AM T [facility] GFR Estimate >90 >60 mL/min/{1. 73_m2} 01/24/2020 6:47 AM CDT [facility] Comment: Non GFR Calc Starting 07/29/2018, serum creatinine based estimated GFR (eGFR) will be calculated using the Chronic Kidney Disease Epidemiology Collaboration (CKD-EPI) equation. GFR Estimate If Black >90 >60 mL/min/{1. 73_m2} 01/24/2020 6:47 AM CDT [facility] Comment: GFR Calc Starting 07/29/2018, serum creatinine based estimated GFR (eGFR) will be calculated using the Chronic Kidney Disease Epidemiology Collaboration (CKD-EPI) equation. Calcium 8.1(L) 8.5 - 10.1 mg/dL 01/24/2020 6:47 AM CDT [facility] Blood specimen (specimen) 01/24/2020 6:00 AM CDT 01/24/2020 6:28 AM CDT us Ranjit Christopher MD LAB - BLOOD ORDERABLES Fi nal Result [facility] [address] [address], [facility] [phone] * (ABNORMAL) Hemoglobin A1c (01/13/2020 6:53 AM CDT) Hemoglobin A1C 6.2(H) 0 - 5.6 % 01/13/2020 7:26 AM CDT [facility] Comment: Normal <5.7% Prediabetes 5.7-6.4% Diabetes 6.5% or higher - adopted from ADA consensus guidelines. 01/13/2020 6:53 AM CDT 01/13/2020 6:58 AM CDT us Michelle Knox PA-C LAB - BLOOD ORDERABLES Final Result [facility] [address] [address], [facility] [phone] from Last 3 Months or Most Recently Relevant to Health Maintenance Insurance MEDICARE Survata MEDICARE Survata Advance Directives For more information, please contact: [phone] * Full Code (Latest Code Status on [...] or legal decision maker available Care Teams Inspector Eyeglass Frames Relationship Specialty Start Date End Date Clinic, [address] [address] PCP - General 01/21/20 Xavi Devine [address] [address] Family Practice 05/09/15 [facility] ([place]) 01/24/20
--- NOTE | 2024-08-13 16:11 | P.IMHP_ITS ---
Hospitalist- H&P: HPI History of Present Illness Date Seen: 08/13/24 Chief complaint: UTI Narrative: ADMISSION HISTORY AND PHYSICAL - HOSPITALIST Chief Complaint: Weakness, fatigue, fever HPI: 74-year-old Cuau[place]emoc presents with acute onset of fever, weakness and fatigue. His took him to urgent care this morning suspecting a UTI. He became tachycardic, febrile, less responsive while in the urgent care exam room. EMS was called and he was brought to the ER. Cu[place]emoc has a history of bladder cancer, status post chemo and radical cystoprostatectomy in 2019. He has a urostomy. He has had frequent UTIs since placement of the urostomy. He also has a history of type 2 diabetes on insulin, coronary heart disease. Hypertension, hyperlipidemia, severe LVH, mild aortic stenosis. Reviewing the last few cultures he has had of his urine he seems to always grow Klebsiella pneumonia resistant to ampicillin and intermediate to nitrofurantoin. ER COURSE: Labs, chest x-ray, Tylenol, 2 g ceftriaxone and a fluid bolus CODE STATUS: Full code EMERGENCY CONTACT PLAN: Bryce Rivera Rel To Pat Cell I've updated the PFSH, medications and allergies in the Expanse tabs. INVESTIGATIONS: LABS/MICRO/ECG/IMAGING Upon arrival to the ER he was 102.1 ? F. On the floor has been 101.8 ? F. his blood pressures have been mostly normal with 1 soft reading at 95/57. But currently 112/62. His pulses been 80s to low 100 His respiratory rate is unlabored. He is 97% on room air His weight is 99.5 kg CBC reflects a normal white blood cell count of 10.6. Chronic anemia at 11.8, platelets are slightly low at 95. Blood gas reflects a 7.4 pH. Normal glucose given hyperglycemia. Normal electrolytes. Normal renal function. Lactate that came in at 2.5 but is now 1.8 after fluid resuscitation. CRP is 6.7 Respiratory quad screen negative Urine shows 2+ protein, 1+ blood, 3+ leukocyte esterase Urine culture and blood culture are pending Chest x-ray Lungs and pleural space: Lungs are clear. No sign of infiltrate or mass. No sign of pleural effusion. No pneumothorax. EKG shows normal sinus rhythm with a right bundle branch block A1c 6.2 that was in April of 2024 REVIEW OF SYSTEMS: 12-point ROS completed with patient and negative unless otherwise stated in HPI or below. PHYSICAL EXAM: CONSTITUTIONAL: Hard of hearing, eating meatloaf, seems a little weak and less interactive than his pre attentive . GENERAL: Well-developed and above ideal body weight, in no respiratory distress. VITAL SIGNS: see record. HEENT: Sclerae are anicteric. No petechiae. CARDIAC: rhythm is regular. There is no S3 or rub. Holosystolic ejection murmur.. Extremities show trace edema with symmetrical pulses. PULM: good air entry with no wheeze. NEURO: Speech is fluent. A brief neurologic exam is negative. SKIN: No rashes, petechiae, concerning changes PSYCHIATRIC: Euthymic. ADMIT TO MEDSURG: FLOOR CARE DVT: Lovenox GI: PO intake Time spent: Today I spent 75 minutes seeing the patient, discussing the patient with ER staff, reviewing Expanse and EPIC notes/diagnostics, discussing the care plan with our care time that includes social work, PT/OT, pharmacy, RT, senior care and documenting my impressions and plan in the medical record. MEDICAL NECESSITY FOR HOSPITALIZATION Anticipated midnights in the hospital: Admitting diagnosis: Complicated UTI Risk of morbidity and mortality: high Acuity is characterized as high and reflected in: This patient is elderly, has a urostomy, history of recurrent UTIs, acute delirium with fever, history of bladder cancer, heart disease and diabetes. He will need inpatient status with IV antibiotic. Is risk for bacteremia is high. This patient will require hospital services as outlined in the assessment and plan in order to stabilize and be safely discharged to a lower level of care. Because of the risk and acuity as described above, this patient cannot be managed at a lower level of care. LENGTH OF STAY: 2 IP ? Anticipated LOS>2 midnights due to acuity of clinical presentation requiring inpatient level of care [facility] Medical History (Updated 08/13/24 @ 20:34 by Ángela Layton MD) Erectile dysfunction ?N52.9 - Male erectile dysfunction, unspecified (ICD-10) Cobalamin deficiency ?E53.8 - Deficiency of other specified B group vitamins (ICD-10) BPH (benign prostatic hyperplasia) ?N40.0 - Benign prostatic hyperplasia without lower urinary tract symptoms (ICD-10) Anemia ?D64.9 - Anemia, unspecified (ICD-10) Normal cardiac stress test Surgical History (Updated 08/13/24 @ 16:14 by Ángela Layton MD) S/P radical cystoprostatectomy ?Z90.79 - Acquired absence of other genital organ(s) (ICD-10) ?Z90.6 - Acquired absence of other parts of urinary tract (ICD-10) History of amputation ?Z89.9 - Acquired absence of limb, unspecified (ICD-10) Status post bilateral knee replacements (~2009) ?Z96.653 - Presence of artificial knee joint, bilateral (ICD-10) History of ileal conduit ?Z98.890 - Other specified postprocedural states (ICD-10) History of coronary artery stent placement ?Z95.5 - Presence of coronary angioplasty implant and graft (ICD-10) History of cholecystectomy ?Z90.49 - Acquired absence of other specified parts of digestive tract (ICD- 10) History of appendectomy ?Z90.49 - Acquired absence of other specified parts of digestive tract (ICD- 10) Family History Mother Breast cancer Father Stroke High blood pressure Family/Other Diabetes Social History Narrative: Non-smoker- history of tobacco use Retired from employment What is your current living situation?: I presently have a place to live Problems where you live: no known problems Problems where you live details: NA In the past 12 months, utilities in danger of being shut off: no In past 12 months, lack of transportation kept you from medical appts, meetings, work, or getting things needed for daily living: no In the past 12 mos, have been you worried that your food would run out before you had money to buy more?: never true In the past 12 mos, the food you bought just didn't last and you didn't have money to buy more?: never true Highest level of school completed/degree received: Master's degree Smoking Status: Former smoker Do you use any of these nicotine containing products: None How often do you have a drink containing alcohol: 4 or more times a week Alcohol type: beer and wine Alcohol type details: 3-5 drinks/week How many standard drinks containing alcohol do you have on a typical day: 1 or 2 How often do you have six or more drinks on one occasion: Never AUDIT-C Alcohol total score: 4 Non-prescribed substance use: denies use Caffeine: Yes How often does anyone, including family, friends and others, physically hurt you : never How often does anyone, including family, friends and others, insult or talk down to you: never How often does anyone, including family, friends and others, threaten you with harm: never How often does anyone, including family, friends and others, scream or curse at you: never Meds Home Medications and Allergies Home Medications ?Medication ?Instructions ?Recorded ?Confirmed ?Type aspirin 81 mg tablet,delayed 81 mg PO DAILY 03/20/22 08/13/24 History release (Adult Aspirin Regimen) insulin glargine 100 unit/mL (3 20 unit subcut QAM 03/20/22 08/13/24 History mL) subcutaneous pen (Lantus Solostar U-100 Insulin) metformin 1,000 mg tablet 1,000 mg PO BID 03/20/22 08/13/24 History tirzepatide 10 mg/0.5 mL 10 mg subcut Q7D 06/13/24 08/13/24 History subcutaneous pen injector (Mounjaro) rosuvastatin 20 mg tablet 20 mg PO HS 08/13/24 08/13/24 History sildenafil (pulm.hypertension) 20 20 - 100 mg PO DAILY PRN 08/13/24 08/13/24 History mg tablet trazodone 50 mg tablet 100 mg PO HS sleep 08/13/24 08/13/24 History Allergies Allergy/AdvReac Type Severity Reaction Status Date / Time Sulfa (Sulfonamide Allergy Intermediate Rash Verified 08/13/24 16:24 Antibiotics) Exam Const: Vital Signs, click to edit/add: Vital Signs - 24 hr 08/13/24 13:47 08/13/24 13:49 08/13/24 14:00 Temperature 101 F H Pulse Rate 100 Pulse Rate [Pulse Oximeter] 100 Respiratory Rate 20 14 Blood Pressure Blood Pressure [Le ft Upper Arm] 125/61 Pulse Oximetry 97 98 97 Oxygen Delivery Me thod Room Air 08/13/24 15:00 08/13/24 15:10 Temperature 101.8 F H Pulse Rate 96 Pulse Rate [Pulse Oximeter] Respiratory Rate 12 Blood Pressure 121/67 Blood Pressure [Le ft Upper Arm] Pulse Oximetry 96 Oxygen Delivery Ri oswald Hospitalist - H&P: Result Labs Labs: Short CBC 08/13/24 Range/Units 14:14 WBC 10.62 (4.50-11.00) K/uL Hgb 11.8 L (13.5-17.5) gm/dL Hct 35.9 L (37.0-53.0) % Plt Count 95 L (140-440) K/uL BMP 08/13/24 14:14 Sodium 134 L Potassium 4.2 Chloride 103 Carbon Dioxide 22 BUN 25 Creatinine 0.9 Glucose 237 H Calcium 8.7 Liver Function 08/13/24 Range/Units 14:14 Total Bilirubin 1.1 (0.1-1.5) mg/dL Direct Bilirubin 0.3 (0.0-0.5) mg/dL AST 31 (12-35) U/L ALT 32 (4-50) U/L Alkaline Phosphatase 62 (40-150) U/L Albumin 4.2 (3.3-5.0) g/dL Urine 08/13/24 Range/Units 13:49 Urine Color Yellow (Yellow) Urine Appearance Slightly Cloudy A (Clear) Urine pH 7.0 (5.0-8.5) Ur Specific [place] 1.020 (1.000-1.030) Urine Protein 2+ A (Negative) Urine Glucose (UA) Negative (Negative) Assessment and Plan Assessment and plan (1) Sepsis: Problem comment: febrile, tachycardia, UTI (3+ LE, bacturia), elevated lactate, relative hypotension (MAP 70). -fluids, recheck lactate, IV abx, change appliance, monitor for hypotension/bacteremia -d/w ID b/c of recurrent history and urostomy status - would even like to see ID as a outpatient. Has already seen urostomy and wound care. Feels confident in her care of the urostomy. Status: Acute (2) Complicated UTI (urinary tract infection): Problem comment: -as above -likely K. Pneumonia again -based on previous cultures will initiate ceftriaxone 2 g Q 24 hours -fluids, monitoring, change appliance, discuss with ID -remain vigilant for bacteremia Status: Acute (3) Presence of urostomy: Problem comment: summer 2019 after chemo for bladder cancer Status: Acute (4) Malignant neoplasm of urinary bladder: Problem comment: dx in 2019, s/p chemo and surgery (cystoprostatectomy) in 2020. Followed by Dr. Delaney and urology. changes urostomy appliance q 3 days Status: Acute (5) Insulin dependent type 2 diabetes mellitus, controlled: Problem comment: -A1C 6.2 in 05/05 -lantus 20 units qam -mounjaro, metformin (holding both) -accuchecks and SSI Status: Acute (6) Coronary artery disease: Problem comment: -carvedilol, lisinopril, asp -2 stents in 2004 in [place] -followed by [facility] - just seen in 08/04 -last echo and cardiac MRI (for LVH) done in 2019 -evidence of severe LVH, mild , diastolic dysfunction, EF 55-60% in 2019 -scheduled to have updated echo this month Status: Chronic (7) Hypertension: Problem comment: carvedilol, lisinopril, asp Status: Chronic (8) Concentric left ventricular hypertrophy: Problem comment: -severe -cardiac MR in 2019 reassuring -diastolic dysfunction on echo but has never been admitted for CHF -followed by [facility] Status: Chronic (9) Anemia: Problem comment: -normal MCV -recommend iron panel, b12/folate (will add to labs as I don't see these done recently or ever) Status: Acute (10) Obstructive sleep apnea syndrome: Status: Chronic (11) Hearing loss: Status: Chronic (12) Insomnia: Problem comment: -trazodone 50-150 qhs Status: Acute (13) Hyperlipidemia: Problem comment: -continue crestor 20 Status: Acute (14) Obesity: Problem comment: 338# max weight; down to 218 with lifestyle changes and GLP-1 agonist Status: Chronic
[2024-08-13] MEDS: 0.9 % SODIUM CHLORIDE 1000 ml 1,000 ML 500 ML IV (16:38)
[2024-08-13 16:46] LABS: Lactate Sepsis 2 Hour 1.8 mmol/L (0.5-1.9)
--- NOTE | 2024-08-13 18:24 | PC.NURSE ---
Pt arrived to floor with around 1530. Pt up with assist of one. Pt alert and oriented. Pt had no complaints of pain. Pt has a urostomy per Pt since 2019. Pt comes from home with and per Pt has had chronic UTIs. Per Pt and Pt's urostomy bag was changed yesterday 08/12/2024. VS WNL and afebrile.
[2024-08-13] MEDS: 0.9 % SODIUM CH + KCL 20 mEq/L 1,000 ML 125 ML IV (19:17)
[2024-08-13] MEDS: carvediloL 6.25 MG TABLET PO (20:30)
[2024-08-13] MEDS: ROSUVASTATIN CALCIUM 10 MG TABLET 20 MG PO (20:30)
[2024-08-13] MEDS: ENOXAPARIN 40 MG/0.4 ML INJ SUBCUT (20:30)
[2024-08-14] VITALS (10 sets, daily range): BP systolic 122–145; BP diastolic 54–72; PULSE 80–93; RESP 16–18; TEMP 36.8–37.2; O2SAT 95–98
[2024-08-14] MEDS: 0.9 % SODIUM CH + KCL 20 mEq/L 1,000 ML 125 ML IV ×2 (03:38→13:00)
[2024-08-14 06:26] LABS: HCO3 VBG 24 mmol/L (21-28); PCO2 VBG 36 mmHG (40-50); PO2 VBG 52.2 mmHG (25-47)
[2024-08-14 06:29] LABS: Basophils Absolute Auto 0.01 K/uL (0.00-0.30); Basophils Percent Auto 0.2 % (0.0-3.0); Hematocrit 30.3 % (37.0-53.0); Hemoglobin* 9.8 gm/dL (13.5-17.5); Immature Granulocytes Abs Auto 0.02 K/uL (0.00-0.30); Immature Granulocytes Pct Auto 0.3 %; Lymphocytes Percent Auto 11.4 % (20-44); Mean Corpuscular HGB Conc 32 gm/dL (32-36); Mean Corpuscular Hemoglobin 30 pg (26-34); Mean Corpuscular Volume 93 fL (80-100); Monocytes Percent Auto 9.7 % (0.0-11.0); Neutrophils Percent Auto 78.4 % (42.0-72.0); Platelet Count* 86 K/uL (140-440); RDW Coefficient of Variation % 16.6 % (11.5-15.5); Red Blood Count 3.26 m/uL (4.30-5.90); White Blood Count* 6.41 K/uL (4.50-11.00)
[2024-08-14 06:33] LABS: Slide Review Reflex No
--- NOTE | 2024-08-14 06:33 | PC.NURSE ---
End of shift summary: Pt has been A&O, afebrile and VSS overnight. Previous RN reported pt having a fever of 100.3 at 1900 but it resolved by 2300. PIV in right AC infusing NS + KCL @ 125 mL/hr. Pt slept well in between cares. Denies pain, nausea or dizziness. TELE read NSR. Urostomy output total: 800 mL. Pt is very CAHTO without his hearing aides in. Dexcom in place but not recently calibrated so POC finger sticks required for blood glucose assessments. HS B. ?
[2024-08-14 06:57] LABS: Albumin* 3.3 g/dL (3.3-5.0); Chloride* 107 mmol/L (96-114); Sodium* 136 mmol/L (135-149)
[2024-08-14 06:58] LABS: Iron* 14 ug/dL (49-181); Potassium* 3.8 mmol/L (3.6-5.1)
[2024-08-14 07:00] LABS: Creatinine* 0.7 mg/dL (0.5-1.5); Est. Creatinine Clearance* 64.89; Estimated Glomerular Filt Rate 95 ml/min
[2024-08-14 07:01] LABS: Anion Gap 6 mEq/L (7-15); Blood Urea Nitrogen* 23 mg/dL (7-30); Calcium* 7.7 mg/dL (8.4-10.6); Carbon Dioxide* 23 mmol/L (20-32); Glucose* 106 mg/dL (60-115); Phosphorus* 2.3 mg/dL (2.5-4.5)
[2024-08-14 07:08] LABS: Percent Iron Saturation 5 % (20-50); Total Iron Binding Capacity 253 ug/dL (261-462)
[2024-08-14 07:16] LABS: C Reactive Protein* 14.6 mg/dL (0.5-1.0)
[2024-08-14 08:18] LABS: Ferritin* 88.3 ng/mL (17.9-464.0)
[2024-08-14 08:33] LABS: Vitamin B12* 339 pg/mL (243-894)
[2024-08-14] MEDS: carvediloL 6.25 MG TABLET PO ×2 (09:20→21:49)
[2024-08-14] MEDS: ASPIRIN 81 MG TABLET EC PO (09:20)
[2024-08-14] MEDS: cefTRIAXone 2 GM in 0.9 % SODIUM CHLORIDE Mini-bag 100 ML IVPB (09:20)
[2024-08-14] MEDS: INSULIN GLARGINE,HUM.REC.ANLOG 100 UNIT/ML INSULN.PEN 20 UNIT SUBCUT (09:22)
--- NOTE | 2024-08-14 11:49 | P.IMPN_ITS ---
Progress Note: A&P Assessment and plan (1) Sepsis: Problem details: - febrile, tachycardia, UTI (3+ LE, bacturia), elevated lactate, relative hypotension on admission - hospital day 1: improving, continue IV Ceftriaxone - reviewed with ID 08/14/24: recommends confirming no stone (notably negative C/A/P CT from 05/26/24 found in chart, scanned in 08/13/24), initiating DAILY CEPHALEXIN on discharge with close Urology f/u - currently NGTD on blood culture, Urine cx growing GNR Status: Acute (2) Complicated UTI (urinary tract infection): Problem details: -as above -likely K. Pneumonia again -based on previous cultures will initiate ceftriaxone 2 g Q 24 hours -fluids, monitoring, change appliance, discuss with ID -remain vigilant for bacteremia Status: Acute (3) Presence of urostomy: Problem details: - summer 2019 after chemo for bladder cancer Status: Acute (4) Malignant neoplasm of urinary bladder: Problem details: dx in 2018, s/p chemo and surgery (cystoprostatectomy) in 2019. Followed by Dr. Delaney of Oncology and [facility] of Urology. changes urostomy appliance q 3 days Status: Acute (5) Insulin dependent type 2 diabetes mellitus, controlled: Problem details: -A1C 6.2 in 05/05 -lantus 20 units qam -mounjaro, metformin (holding both) -accuchecks and SSI Status: Acute (6) Coronary artery disease: Problem details: -carvedilol, lisinopril, asp -2 stents in 2004 in [place] -followed by [facility] - just seen in 08/04 -last echo and cardiac MRI (for LVH) done in 2019 -evidence of severe LVH, mild , diastolic dysfunction, EF 55-60% in 2019 -scheduled to have updated echo this month Status: Chronic (7) Hypertension: Problem details: carvedilol, lisinopril, asp Status: Chronic (8) Concentric left ventricular hypertrophy: Problem details: -severe -cardiac MR in 2019 reassuring -diastolic dysfunction on echo but has never been admitted for CHF -followed by [facility] Status: Chronic (9) Thrombocytopenia: Problem details: - current platelets 86, have been 86-174 over the past few years - no evidence of acute bleeding, continue to follow Status: Acute Plan - per above - updated at bedside, questions answered Subjective Date Seen: 08/14/24 Interval history: Cuauhtemoc was admitted to the hospital last night for weakness in the setting of recurrent UTIs with concern for sepsis (febrile, tachycardia, and hypotensive). History of bladder cancer, s/p Urostomy. No history of kidney stones. He is on IV Ceftriaxone and VS are all improved/normal. Today, patient is feeling better. + weakness, working with therapies. Reviewed case and history with ID who recommends discharging on daily Cephalexin (if culture results during this stay are same as previous). Exam Narrative: Exam Narrative: GEN: Sitting comfortably in bedside chair and eating breakfast, hard of hearing but answering questions appropriately HEENT: EOMIs bilaterally, no scleral icterus CV: RRR, + blowing systolic murmur heard across precordium R: LCTA bilaterally without concerning wheezing Skin: No concerning skin lesions or rashes on exposed skin Neuro: Nonfocal Psych: Appropriate Const: Vital Signs, click to edit/add: Vital Signs - 24 hr 08/13/24 13:47 08/13/24 13:49 08/13/24 14:00 Temperature 101 F H Pulse Rate 100 Pulse Rate [Pulse Oximeter] 100 Respiratory Rate 20 14 Blood Pressure Blood Pressure [Le ft Arm] Blood Pressure [Le ft Upper Arm] 125/61 Pulse Oximetry 97 98 97 Oxygen Delivery Me thod Room Air 08/13/24 15:00 08/13/24 15:10 08/13/24 16:16 Temperature 101.8 F H 98.0 F Pulse Rate 96 Pulse Rate [Pulse Oximeter] 89 Respiratory Rate 12 14 Blood Pressure 121/67 Blood Pressure [Le ft Arm] 95/57 L Blood Pressure [Le ft Upper Arm] Pulse Oximetry 96 95 Oxygen Delivery Me thod Room Air 08/13/24 17:14 08/13/24 19:00 08/13/24 23:00 Temperature 98.1 F 100.3 F H Pulse Rate 86 Pulse Rate [Pulse Oximeter] 80 97 Respiratory Rate 21 20 Blood Pressure Blood Pressure [Le ft Arm] 112/62 124/59 L Blood Pressure [Le ft Upper Arm] Pulse Oximetry 97 94 Oxygen Delivery Me thod Room Air Room Air 08/13/24 23:00 08/14/24 03:00 08/14/24 07:00 Temperature 98.3 F 98.9 F Pulse Rate 96 Pulse Rate [Pulse Oximeter] 93 90 Respiratory Rate 18 18 Blood Pressure Blood Pressure [Le ft Arm] 131/65 122/65 Blood Pressure [Le ft Upper Arm] Pulse Oximetry 96 95 Oxygen Delivery Me thod Room Air Room Air 08/14/24 11:00 Temperature Pulse Rate Pulse Rate [Pulse Oximeter] 86 Respiratory Rate 16 Blood Pressure Blood Pressure [Le ft Arm] 126/68 Blood Pressure [Le ft Upper Arm] Pulse Oximetry 97 Oxygen Delivery Me thod Room Air Labs Labs: Laboratory Results - last 24 hr 08/13/24 08/13/24 08/13/24 13:49 14:04 14:14 WBC 10.62 RBC 3.92 L Hgb 11.8 L Hct 35.9 L MCV 92 MCH 30 MCHC 33 RDW Coeff of Arabella 16.3 H Plt Count 95 L Neut % (Auto) 85.4 H Lymph % (Auto) 5.4 L Carroll % (Auto) 8.6 Eos % (Auto) 0.0 Baso % (Auto) 0.2 Neut # (Auto) 9.10 H Lymph # (Auto) 0.60 L Carroll # (Auto) 0.90 Eos # (Auto) 0.00 Baso # (Auto) 0.02 Abs Immat Gran (auto) 0.04 Imm/Tot Granulo (auto) 0.4 VBG pH 7.447 H VBG pCO2 35 L VBG pO2 53.0 H VBG HCO3 24 Sodium 134 L Potassium 4.2 Chloride 103 Carbon Dioxide 22 Anion Gap 9 BUN 25 Creatinine 0.9 Estimated Creat Clear 64.89 Estimated GFR 89 Glucose 237 H Lactate 2.5 H Calcium 8.7 Phosphorus Iron TIBC % Saturation Ferritin Total Bilirubin 1.1 Direct Bilirubin 0.3 AST 31 ALT 32 Alkaline Phosphatase 62 C-Reactive Protein 6.7 H Total Protein 6.9 Albumin 4.2 Vitamin B12 Procalcitonin 0.45 Urine Color Yellow Urine Appearance Slightly Cloudy A Urine pH 7.0 Ur Specific [place] 1.020 Urine Protein 2+ A Urine Glucose (UA) Negative Urine Ketones Negative Urine Blood 1+ A Urine Nitrite Negative Urine Bilirubin Negative Urine Urobilinogen 0.2 Ur Leukocyte Esterase 3+ A SARS-CoV-2 (PCR) Negative SARS-CoV-2 Influenza Type A (PCR) Negative PCR FLU A Influenza Type B (PCR) Negative PCR FLU B RSV (PCR) Negative PCR RSV 08/13/24 08/14/24 16:42 06:00 WBC 6.41 RBC 3.26 L Hgb 9.8 L Hct 30.3 L MCV 93 MCH 30 MCHC 32 RDW Coeff of Arabella 16.6 H Plt Count 86 L Neut % (Auto) 78.4 H Lymph % (Auto) 11.4 L Carroll % (Auto) 9.7 Eos % (Auto) 0.0 Baso % (Auto) 0.2 Neut # (Auto) 5.00 Lymph # (Auto) 0.70 L [place] # (Auto) 0.60 Eos # (Auto) 0.00 Baso # (Auto) 0.01 Abs Immat Gran (auto) 0.02 Imm/Tot Granulo (auto) 0.3 VBG pH 7.430 VBG pCO2 36 L VBG pO2 52.2 H VBG HCO3 24 Sodium 136 Potassium 3.8 Chloride 107 Carbon Dioxide 23 Anion Gap 6 L BUN 23 Creatinine 0.7 Estimated Creat Clear 64.89 Estimated GFR 95 Glucose 106 Lactate 1.8 Calcium 7.7 L Phosphorus 2.3 L Iron 14 L TIBC 253 L % Saturation 5 L Ferritin 88.3 Total Bilirubin Direct Bilirubin AST ALT Alkaline Phosphatase C-Reactive Protein 14.6 H Total Protein Albumin 3.3 Vitamin B12 339 Procalcitonin Urine Color Urine Appearance Urine pH Ur Specific [place] Urine Protein Urine Glucose (UA) Urine Ketones Urine Blood Urine Nitrite Urine Bilirubin Urine Urobilinogen Ur Leukocyte Esterase SARS-CoV-2 (PCR) Influenza Type A (PCR) Influenza Type B (PCR) RSV (PCR)
[2024-08-14 17:08] LABS: Amorphous Sediment Urine Few; Bacteria Urine Moderate; Squamous Epithelial Cell Urine Few (None-Few)
--- NOTE | 2024-08-14 19:44 | PC.NURSE ---
Nursing Care Hours: [id number] Pt this shift calm and cooperative, alert and oriented. VSS. Pt does admit to feeling weak in the LE. Walker and gait belt being used for ambulation. Pt instructed on calling for assist before getting up from toilet, bed or chair. Pt did not comply in bathroom and development writer and therapies reinforced teaching. Pt complicit rest of shift. Ambulated suarez x3 with staff. Pt emptying urostomy bag independently.
[2024-08-14] MEDS: ROSUVASTATIN CALCIUM 10 MG TABLET 20 MG PO (21:49)
[2024-08-14] MEDS: ENOXAPARIN 40 MG/0.4 ML INJ SUBCUT (21:50)
[2024-08-14] MEDS: SODIUM CHLORIDE 0.9 % (FLUSH) 10 ML SYRINGE 5 ML IVF (21:51)
[2024-08-14] MEDS: METFORMIN ER 500 MG PO (23:51)
[2024-08-15 01:56] VITALS: BP 146/70; PULSE 84; RESP 16; TEMP 37; O2SAT 97
[2024-08-15 07:11] LABS: Ionized Calcium* 1.01 mmol/L (1.11-1.30)
[2024-08-15 07:17] LABS: Eosinophils Percent Auto 1.8 % (0.0-7.0); Hematocrit 29.1 % (37.0-53.0); Hemoglobin* 9.4 gm/dL (13.5-17.5); Immature Granulocytes Pct Auto 0.3 %; Lymphocytes Percent Auto 14.3 % (20-44); Mean Corpuscular HGB Conc 32 gm/dL (32-36); Mean Corpuscular Hemoglobin 30 pg (26-34); Mean Corpuscular Volume 93 fL (80-100); Monocytes Percent Auto 10.3 % (0.0-11.0); Neutrophils Percent Auto 73.3 % (42.0-72.0); Platelet Count* 83 K/uL (140-440); RDW Coefficient of Variation % 16.2 % (11.5-15.5); Red Blood Count 3.14 m/uL (4.30-5.90); White Blood Count* 3.98 K/uL (4.50-11.00)
[2024-08-15 07:18] VITALS: PULSE 82
[2024-08-15 07:31] LABS: Albumin* 3.2 g/dL (3.3-5.0); Chloride* 108 mmol/L (96-114)
[2024-08-15 07:32] LABS: Sodium* 136 mmol/L (135-149)
[2024-08-15 07:34] LABS: Alanine Aminotransferase* 27 U/L (4-50); Alkaline Phosphatase* 53 U/L (40-150); Anion Gap 7 mEq/L (7-15); Aspartate Amino Transferase* 34 U/L (12-35); Bilirubin Total* 0.6 mg/dL (0.1-1.5); Blood Urea Nitrogen* 17 mg/dL (7-30); Carbon Dioxide* 21 mmol/L (20-32); Creatinine* 0.6 mg/dL (0.5-1.5); Est. Creatinine Clearance* 64.89; Estimated Glomerular Filt Rate 100 ml/min; Glucose* 100 mg/dL (60-115); Total Protein* 5.9 g/dL (6.0-8.3)
[2024-08-15 07:35] LABS: Calcium* 7.8 mg/dL (8.4-10.6); Potassium* 3.8 mmol/L (3.6-5.1); Slide Review Reflex No
[2024-08-15 08:00] VITALS: BP 146/71; PULSE 82; RESP 16; RESP 18; TEMP 37.1; O2SAT 97
[2024-08-15] MEDS: METFORMIN ER 500 MG PO (08:40)
[2024-08-15] MEDS: carvediloL 6.25 MG TABLET PO (08:40)
[2024-08-15] MEDS: ASPIRIN 81 MG TABLET EC PO (08:40)
[2024-08-15] MEDS: cefTRIAXone 2 GM in 0.9 % SODIUM CHLORIDE Mini-bag 100 ML IVPB (08:41)
[2024-08-15] MEDS: SODIUM CHLORIDE 0.9 % (FLUSH) 10 ML SYRINGE 5 ML IVF (08:41)
[2024-08-15] MEDS: INSULIN GLARGINE,HUM.REC.ANLOG 100 UNIT/ML INSULN.PEN 20 UNIT SUBCUT (08:41)
[2024-08-15 12:18] VITALS: BP 146/71; PULSE 82; RESP 18; TEMP 37.1; O2SAT 97
--- NOTE | 2024-08-15 12:42 | PC.NURSE ---
discharge. pt has been very pleasant. alert x3. he is up ab izabela in the room. Walker and gait belt being used for ambulation. Ambulated halls. Pt emptying urostomy bag independently. went over discharge packet with pt. went over medications, instructions, educations and appointment, SL was d/c intact. pt left with all paperwork and belongings. w/c ride was offered and he declinded.
--- NOTE | 2024-08-15 13:11 | PM.DS1 ---
DS: Providers Provider Date Seen: 08/15/24 Date of admission: 08/13/24 16:10 Primary care physician: Aydee Harrison PA-C Admitting Clinician: Ángela Layton MD Attending Physician on discharge: Rafael Vital MD Date of Discharge: 08/15/24 DS: Diagnosis Discharge Diagnosis (1) Sepsis: Status: Acute Problem details: - febrile, tachycardia, UTI (3+ LE, bacturia), elevated lactate, relative hypotension on admission Sepsis thought secondary to urinary infection. Cultures of urine grew the same Klebsiella pneumonia as he has had on other recent cultures. Treated with ceftriaxone and then Keflex at discharge (2) Complicated UTI (urinary tract infection): Status: Acute Problem details: -as above -K. Pneumonia again. Same sensitivities Clinically improved on ceftriaxone. Discharge on Keflex for acute treatment followed by Keflex for prophylaxis pending outpatient follow-up with Urology and or infectious disease (3) Pancytopenia: Status: Acute Problem details: Chronic. Suspected to be related to bladder cancer treatment. Outpatient follow-up (4) Presence of urostomy: Status: Acute Problem details: - summer 2019 after chemo for bladder cancer (5) Insulin dependent type 2 diabetes mellitus, controlled: Status: Acute Problem details: -A1C 6.2 in 05/05 -lantus 20 units qam -mounjaro, metformin (holding both) -accuchecks and SSI Blood sugars well controlled in the hospital (6) Iron deficiency anemia: Status: Acute Problem details: Patient has iron deficiency along with his anemia/pancytopenia. I recommend oral iron replacement to normalize his iron studies. Outpatient evaluation as indicated for pancytopenia which could be secondary to his cancer treatment. History of colonoscopy which was normal 3 years ago. Outpatient follow-up of iron deficiency anemia and pancytopenia DS: Summary Hospital Course Hospital Course: 74-year-old [place] presents with acute onset of fever, weakness and fatigue. His took him to urgent care this morning suspecting a UTI. He became tachycardic, febrile, less responsive while in the urgent care exam room. EMS was called and he was brought to the ER. [place] has a history of bladder cancer, status post chemo and radical cystoprostatectomy in 2019. He has a urostomy. He has had frequent UTIs since placement of the urostomy. He also has a history of type 2 diabetes on insulin, coronary heart disease. Hypertension, hyperlipidemia, severe LVH, mild aortic stenosis. Reviewing the last few cultures he has had of his urine he seems to always grow Klebsiella pneumonia resistant to ampicillin and intermediate to nitrofurantoin. In the hospital he was found to have a urinary tract infection due to Klebsiella pneumonia. Was treated with ceftriaxone and had excellent response in terms of clinical improvement. Mental status improved. Vital signs and labs normalized. Had a discussion with patient and about management plan for recurrent Klebsiella pneumonia urinary tract infections. At this point he will be treated with Keflex 500 t.i.d. for 5 more days and then transition to Keflex 500 mg once a day pending urology out patient follow-up. Consider Infectious Disease consult if indicated. Status at Discharge Functional status at discharge: independent ambulation Overall status at discharge: patient is progressing back to baseline Time Spent with Patient Time attestation: Total time spent providing and/or coordinating discharge services: 40 minutes Time spent: Greater than 30 minutes Exam Narrative: Exam Narrative: He is alert and appears in no distress. He is oriented to his circumstances. Speech is normal. Respirations are clear to auscultation. Cardiovascular: S1, S2, regular rate and rhythm. No murmur gallop or rub. Abdomen: Bowel sounds active. Abdomen is soft without tenderness or mass. Urostomy site is healthy with pink stoma, no erythema. Urine is clear. Extremities no edema Const: Vital Signs, click to edit/add: Vital Signs - 24 hr 08/14/24 15:00 08/14/24 15:00 08/14/24 17:30 Temperature Pulse Rate 88 Pulse Rate [Bilate ral Radial] Pulse Rate [Pulse Oximeter] 86 90 Respiratory Rate 16 18 Blood Pressure [Ri ght Arm] 145/72 H Pulse Oximetry 98 Oxygen Delivery Me thod Room Air 08/14/24 19:00 08/14/24 22:41 08/14/24 22:54 Temperature 98.7 F 99 F Pulse Rate 82 Pulse Rate [Bilate ral Radial] Pulse Rate [Pulse Oximeter] 93 80 Respiratory Rate 18 16 Blood Pressure [Ri ght Arm] 142/66 H 122/54 L Pulse Oximetry 98 97 Oxygen Delivery Me thod Room Air Room Air 08/14/24 23:00 08/14/24 23:11 08/15/24 01:56 Temperature 98.6 F Pulse Rate 81 Pulse Rate [Bilate ral Radial] Pulse Rate [Pulse Oximeter] 80 84 Respiratory Rate 16 16 Blood Pressure [Ri ght Arm] 146/70 H Pulse Oximetry 97 Oxygen Delivery Me thod Room Air 08/15/24 07:18 08/15/24 08:00 08/15/24 08:00 Temperature 98.7 F Pulse Rate 82 Pulse Rate [Bilate ral Radial] 82 82 Pulse Rate [Pulse Oximeter] 82 Respiratory Rate 16 18 Blood Pressure [Ri ght Arm] 146/71 H Pulse Oximetry 97 Oxygen Delivery Ms thod Room Air 08/15/24 12:18 Temperature 98.7 F Pulse Rate Pulse Rate [Bilate ral Radial] 82 Pulse Rate [Pulse Oximeter] 82 Respiratory Rate 18 Blood Pressure [Ri ght Arm] 146/71 H Pulse Oximetry 97 Oxygen Delivery Ms thod Room Air DS: Data Data Completed and Pending Labs on day of discharge: Labs from last 24 hours 08/15/24 08/13/24 05:54 13:49 WBC 3.98 L RBC 3.14 L Hgb 9.4 L Hct 29.1 L MCV 93 MCH 30 MCHC 32 RDW Coeff of Arabella 16.2 H Plt Count 83 L Neut % (Auto) 73.3 H Lymph % (Auto) 14.3 L [place] % (Auto) 10.3 Eos % (Auto) 1.8 Baso % (Auto) 0.0 Neut # (Auto) 2.90 Lymph # (Auto) 0.60 L [place] # (Auto) 0.40 Eos # (Auto) 0.10 Baso # (Auto) 0.00 Abs Immat Gran (auto) 0.00 Imm/Tot Granulo (auto) 0.3 Sodium 136 Potassium 3.8 Chloride 108 Carbon Dioxide 21 Anion Gap 7 BUN 17 Creatinine 0.6 Estimated Creat Clear 64.89 Estimated GFR 100 Glucose 100 Calcium 7.8 L Ionized Calcium Shell 1.01 L Total Bilirubin 0.6 AST 34 ALT 27 Alkaline Phosphatase 53 Total Protein 5.9 L Albumin 3.2 L Urine RBC 2-5 A Urine WBC 10-25 A Ur Squamous Epith Cells Few Amorphous Sediment Few A Urine Bacteria Moderate A Preliminary micro results at discharge 08/13/24 14:14 Blood Culture - Preliminary Blood NO GROWTH AFTER 24 HOURS Imaging Chest x-ray: Radiologist's impression: Indication: Fever and weakness Technique: Chest 1 view Comparison: None Findings/Impression: Cardiovascular and mediastinum: Heart size and vasculature are normal in caliber and appearance. Lungs and pleural space: Lungs are clear. No sign of infiltrate or mass. No sign of pleural effusion. No pneumothorax. Bones and soft tissues: No acute findings. Discharge Plan Discharge Disposition: Home, Self-Care Date of Admission: 08/13/24 16:10 Attending Provider on Discharge: Marcos Vital Consulting Providers: Tatiana Vazquez; Elvia Anguiano Primary Care Provider: Aydee Harrison Condition: Stable Anticipated Discharge Date/Time: 08/15/24 11:18 Discharge Medications: New cephalexin 500 mg capsule 500 mg PO TID Qty: 45 0RF Rx Instructions: Take 1 capsule 3 times a day for 5 days then 1 capsule daily for 30 days ferrous sulfate 325 mg (65 mg iron) tablet 325 mg PO DAILY Qty: 100 0RF Continued lisinopril 5 mg tablet 5 mg PO DAILY Qty: 90 3RF Mounjaro 10 mg/0.5 mL pen injector 10 mg subcut Q7D insulin glargine [Lantus Solostar U-100 Insulin] 100 unit/mL (3 mL) insulin pen 20 unit subcut QAM metformin 1,000 mg tablet 1,000 mg PO BID aspirin [Adult Aspirin Regimen] 81 mg tablet,delayed release (DR/EC) 81 mg PO DAILY sildenafil (pulm.hypertension) 20 mg tablet 20 - 100 mg PO DAILY PRN Rx Instructions: NEEDED PRIOR TO SEXUAL ACTIVITY trazodone 50 mg tablet 100 mg PO HS rosuvastatin 20 mg tablet 20 mg PO HS nitroglycerin 0.4 mg tablet, sublingual 0.4 mg sublingual Q5M PRN (Reason: chest pain) Qty: 15 1RF Rx Instructions: do not exceed 3 doses per episode carvedilol 6.25 mg tablet 6.25 mg PO BID Qty: 180 2RF Rx Instructions: must administer with a meal/food Discharge Orders: Discharge Order (Routine); Ordered 08/15/24 Ordered By: Marcos Vital Patient Education: Cephalexin (By mouth), Iron Supplements (By mouth), Urinary Tract Infection in Men (DC) Activity Level: Activity as Tolerated Discharge Diet: Regular Follow Up Appointments: Flor Martinez, MUSIC PASTOR, H[employer]MING EQUIPMENT OPERATOR [Referring] - 08/20/24 10:45 am ([facility] for follow-up.) Aydee Harriosn PA-C [Primary Care Provider] - (Couldn't get patient in with primary within a week.) Forms: [employer] Info Instructions
[2024-08-15 14:59] LABS: Folate, Serum >22.3 ng/mL (>=5.9)
== END 2024-08-15 12:30 | disposition home or self-care (01) | DRG 872 ==
LOC: ED 15:30 → MEDSURG 15:36
PROVIDERS: Family Medicine; Admitting Provider Family Medicine; Emergency Provider Emergency Medicine; PCP Physician Assistant Medical; Visit Provider Family Medicine
DX: A41.89 Other specified sepsis (principal); Z16.11 Resistance to penicillins; N39.0 Urinary tract infection, site not specified; D61.818 Other pancytopenia; I50.30 Unspecified diastolic (congestive) heart failure; I11.0 Hypertensive heart disease with heart failure; B96.1 Klebsiella pneumoniae [K. pneumoniae] as the cause of diseases classified elsewhere; Z87.440 Personal history of urinary (tract) infections; Z93.6 Other artificial openings of urinary tract status; E11.9 Type 2 diabetes mellitus without complications; Z85.51 Personal history of malignant neoplasm of bladder; Z79.85 Long-term (current) use of injectable non-insulin antidiabetic drugs; Z79.4 Long term (current) use of insulin; Z79.84 Long term (current) use of oral hypoglycemic drugs; I35.0 Nonrheumatic aortic (valve) stenosis; I25.10 Atherosclerotic heart disease of native coronary artery without angina pectoris; I10 Essential (primary) hypertension; D50.9 Iron deficiency anemia, unspecified; G47.33 Obstructive sleep apnea (adult) (pediatric); E66.9 Obesity, unspecified; Z68.31 Body mass index [BMI] 31.0-31.9, adult; G47.00 Insomnia, unspecified; D69.6 Thrombocytopenia, unspecified; E78.5 Hyperlipidemia, unspecified; H91.90 Unspecified hearing loss, unspecified ear; Z87.891 Personal history of nicotine dependence
CPT/HCPCS: 36415; 71045; 80048; 80053; 80069; 80076; 81001; 82330; 82607; 82728; 82746; 82803; 82962; 83540; 83550; 83605; 84145; 85025; 86140; 87040; 87086; 87186; 87631; 93005; 94761; 97110; 97112; 97116; 97162; 97165; 97530; 97535; 99284; 99285; A9270; J0696; J1650; J1815; J7030

== ENCOUNTER 2024-08-28 09:02 | Outpatient (CLI) | payer MEDICARE, OTHER, SELFPAY | END 2024-08-28 09:03 | disposition home or self-care (01) | LOC: FRMREF 09:04 | PROVIDERS: PCP Physician Assistant Medical; Visit Provider Nurse Practitioner Family | DX: N39.0 Urinary tract infection, site not specified (principal); D50.9 Iron deficiency anemia, unspecified | CPT/HCPCS: 87086 ==

== ENCOUNTER 2024-09-03 12:14 | Outpatient (CLI) | payer MEDICARE, OTHER, SELFPAY | END 2024-09-03 12:15 | disposition home or self-care (01) | LOC: NFLDREF 09-13 23:34 | PROVIDERS: PCP Physician Assistant Medical; Referring Provider Physician Assistant Medical; Visit Provider Family Medicine | DX: N39.0 Urinary tract infection, site not specified (principal) | CPT/HCPCS: 87086 ==

== ENCOUNTER 2024-09-28 11:01 | Outpatient (CLI) | payer MEDICARE, OTHER, SELFPAY | END 2024-09-28 11:02 | disposition home or self-care (01) | LOC: FRMREF 11:02 | PROVIDERS: PCP Physician Assistant Medical; Visit Provider Physician Assistant Medical | DX: D64.9 Anemia, unspecified (principal) | CPT/HCPCS: 83540; 83550 ==

== ENCOUNTER 2025-05-17 11:09 | Outpatient (CLI) | payer MEDICARE, OTHER, SELFPAY | END 2025-05-17 11:10 | disposition home or self-care (01) | LOC: NFLDREF 05-19 17:09 | PROVIDERS: PCP Physician Assistant Medical; Referring Provider Physician Assistant Medical; Visit Provider Physician Assistant Medical | DX: E53.8 Deficiency of other specified B group vitamins (principal) | CPT/HCPCS: 82607 ==